=== PATIENT | female | born 1950 | race Hispanic/Latino ===

== ENCOUNTER 2017-10-31 11:57 | Observation (INO) | payer MEDICARE ==
[~2017-10-31] VITALS: Ht 149.9 cm; Wt 91.7 kg
[~2017-10-31 11:57] MED LIST: AMLODIPINE BESY10 MG PO; ATORVASTATIN CA20 MG PO; ATORVASTATIN CA40 MG PO; CHLORTHALIDONE25 MG; CYMBALTA60 MG; EFFEXOR XR 3737.5 MG PO; FUROSEMIDE40 MG PO; GLIPIZIDE5 MG PO; HALOPERIDOL1 MG PO; HYZAAR 100-251 EACH; JANUVIA100 MG PO; LASIX20 MG PO; LEVAQUIN500 MG PO; LEVOTHYROXINE100 MC1 IV; LEVOTHYROXINE50 MCG PO; LORAZEPAM0.5 MG PO; MAGNESIUM OXID400 MG PO; MECLIZINE HCL25 MG PO; METOPROLOL TAR100 MG; METOPROLOL TART25 MG PO; POTASSIUM CHLO20 ME1 PO; RISPERIDONE0.5 MG PO; ROPINIROLE HCL1 MG PO; ROPINIROLE HCL3 MG; TRAZODONE HCL100 MG PO; TRAZODONE HCL50 MG PO; ULTRAM 50MG50 MG PO
--- OUTSIDE RECORDS SUMMARY | 2017-10-31 12:01 | XMS REPORT ---
Author Author [facility] Address Unknown Phone Unavailable Care Team Providers Care Rehabilitation Services Aide Name Role Phone JEANNINE DELGADILLO Unavailable Unavailable Problems This patient has no known problems. Allergies, Adverse Reactions, Alerts This patient has no known allergies or adverse reactions. Medications This patient has no known medications. Results Test Description Test Time Test Comments Text Results Atomic Results Result Comments CHEST SINGLE (PORTABLE) [place] [address] Patient Name: JUNIOR TIM MR #: [id number] : 1950 Age/Sex: 66/F Req #: [id number] Adm Physician: JEANNINE DELGADILLO MD Ordered by: DEMETRIUS RAGSDALE MD Report #: [id number] Location: ICU Room/Bed: ICU [facility] ___ Procedure: [id number] DX/CHEST SINGLE (PORTABLE) Exam Date: 06/02/17 Exam Time: 1130 REPORT STATUS: Signed PROCEDURE: A single AP view of the chest. COMPARISON: Portable chest 05/02/2017. INDICATIONS: PLEURAL EFFUSION FINDINGS: Lines/tubes: None. Lungs: Bibasilar atelectasis. No parenchymal mass. Pleura: Small bilateral pleural effusions. No pneumothorax. Heart and mediastinum: The heart and the mediastinum are unremarkable. Bones: No acute bony abnormality. Degenerative changes of the thoracic spine. IMPRESSION: Small bilateral pleural effusions. Dictated by: Delmy Avitia M.D. on 06/02/2017 at 12:07 Electronically approved by: Delmy Avitia M.D. on 06/02/2017 at 12:07 Dictated By: DELMY AVITIA MD 06 Transcribed By: IRVIN on 06/02/171206 COPY TO: DEMETRIUS RAGSDALE MD ABDOMEN-1VIEW ([facility]) [place] [address] Patient Name: JUNIOR TIM MR #: [id number] : 1950 Age/Sex: 66/F Req #: [id number] Adm Physician: JEANNINE DELGADILLO MD Ordered by: JEANNINE DELGADILLO MD Report #: [id number] Location: ICU Room/Bed: ICU [facility] __ Procedure: [id number] DX/ABDOMEN-1VIEW ([facility]) Exam Date: Exam Time: 0500 REPORT STATUS: Signed EXAM: ABDOMEN-1VIEW ([facility]) DATE: 06/01/2017 5:11 AM Time stamp on exam: 5:27 AM INDICATION: NG tube placement. COMPARISON: None FINDINGS: LINES/TUBES: NG tube is visualized with tip overlying the region of the gastric body. BOWEL PATTERN: No evidence for obstruction. SOFT TISSUES: No abnormal calcifications. No mass effect. LUNG BASES: Small left pleural effusion present. BONES: Postsurgical changes from spinal fusion and laminectomy at L4-5 level. Degenerative changes are present. IMPRESSION: Nonobstructive bowel gas pattern. Signed by: Dr. Josafat Bowman M.D. on 06/01/2017 5:58 AM Dictated By: JOSAFAT RAMOS MD Transcribed By: PHIL on 06/01/1758 COPY TO: JEANNINE DELGADILLO MD CHEST SINGLE (PORTABLE) [place] [address] Patient Name: JUNIOR TIM MR #: [id number] : 1950 Age/Sex: 66/F Req #: [id number] Adm Physician: JEANNINE DELGADILLO MD Ordered by: DEMETRIUS RAGSDALE MD Report #: [id number] Location: ICU Room/Bed: ICU [facility] ___ Procedure: [id number] DX/CHEST SINGLE (PORTABLE) Exam Date: 06/01/17 Exam Time: 0500 REPORT STATUS: Signed EXAMINATION: CHEST SINGLE (PORTABLE) INDICATION: Endotracheal and NG tube placement COMPARISON: 05/31/2017 FINDINGS: TUBES and LINES: Endotracheal tube remains in good position with 2 cm above the macario. NG tube placement with tip beyond the film is limited in the distribution of the esophagus and stomach. LUNGS: Lungs are not well inflated. There are bibasilar atelectasis. There is mild prominence of the central pulmonary vasculature, consistent with pulmonary venous congestion. PLEURA: Bilateral pleural effusions left greater than right. HEART AND MEDIASTINUM: Cardiac size is moderately enlarged. BONES AND SOFT TISSUES: No acute osseous lesion. Soft tissues are unremarkable. UPPER ABDOMEN: No free air under the diaphragm. IMPRESSION: Tubes appear normal in position. Bilateral pleural effusions left greater than right. Underlying fluid overload is suspected. Signed by: Dr. Josafat Bowman M.D. on 06/01/2017 5:59 AM Dictated By: JOSAFAT RAMOS MD 8 Transcribed By: PHIL on 06/01/1759 COPY TO: DEMETRIUS RAGSDALE MD CHEST SINGLE (PORTABLE) [place] [address] Patient Name: JUNIOR TIM MR #: [id number] : 1950 Age/Sex: 66/F Req #: [id number] Adm Physician: JEANNINE DELGADILLO MD Ordered by: JEANNINE DELGADILLO MD Report #: [id number] Location: ICU Room/Bed: ICU [facility] __ Procedure: [id number] DX/CHEST SINGLE (PORTABLE) Exam Date : 05/31/17 Exam Time: 2250 REPORT STATUS: Signed EXAMINATION: CHEST SINGLE (PORTABLE) INDICATION: Possible line displacement. COMPARISON: 05/30/2017 and 08/20/2016 FINDINGS: TUBES and LINES: Endotracheal tube in good position 3.5 cm above the maacrio. LUNGS: Lungs are not well inflated. There are bibasilar atelectasis. There is mild prominence of the central pulmonary vasculature, consistent with pulmonary venous congestion. Interlobular septi thickening present. PLEURA: Small bilateral pleural effusions. HEART AND MEDIASTINUM: Cardiac size is mildly enlarged. There are atherosclerotic calcifications within the aorta. BONES AND SOFT TISSUES: No acute osseous lesion. Soft tissues are unremarkable. UPPER ABDOMEN: No free air under the diaphragm. IMPRESSION: Endotracheal tube in good position. Relatively stable to slightly worsening vascular congestion and fluid overload with small pleural effusions. Signed by: Dr. Josafat Bowman M.D. on 11:12 PM Dictated By: JOSAFAT RAMOS MD [id number] Transcribed By: PHIL on 05/31/172311 COPY TO: JEANNINE DELGADILLO MD CHEST SINGLE (PORTABLE) [place] [address] Patient Name: JUNIOR TIM MR #: [id number] : 1950 Age/Sex: 66/F Req #: [id number] Adm Physician: Ordered by: QUINTEN GOODWIN MD Report #: [id number] Location: ER Room/Bed: Procedure: [id number] DX/CHEST SINGLE (PORTABLE) Exam Date: 05/30/17 Exam Time: 1645 REPORT STATUS: Signed PROCEDURE: A single AP view of the chest. COMPARISON: Chest x-ray of 08/25/2016 INDICATIONS: SOB FINDINGS: Lines/tubes: None. Lungs: Lungs are well-inflated. New bilateral infrahilar airspace opacities. Pleura : There is no pleural effusion or pneumothorax. Heart and mediastinum: Mild cardiomegaly. . Bones: No acute bony abnormality. IMPRESSION: Bilateral infrahilar airspace opacities with mild cardiomegaly, likely pulmonary edema. Dictated by: Shama Shaikh M.D. on 05/30/2017 at 17:33 Electronically approved by: Shama Shaikh M.D. on 05/30/2017 at 17:33 Dictated By: SHAMA SHAIKH MD 32 Transcribed By: IRVIN on 05/30/171732 COPY TO: QUINTEN GOODWIN MD CHEST SINGLE (PORTABLE) [place] [address] Patient Name: JUNIOR TIM MR #: [id number] : 1950 Age/Sex: 66/F Req #: [id number] [facility] Physician: JEANNINE DELGADILLO MD Ordered by: QUINTEN GOODWIN MD Report #: [id number] Location: [facility] Room/Bed: [place] [address] Procedure: [id number] DX/CHEST SINGLE (PORTABLE) Exam Date: Exam Time: REPORT STATUS: Signed EXAM: XR CHEST 1 VIEW DATE: 05/30/2017 12:00 AM INDICATION: Intubation COMPARISON: None FINDINGS: Lines and Tubes: ET tube is present with tip just above the macario. Heart and Mediastinum: Moderate cardiomegaly, likely partially related to low lung volumes. Lungs and Pleura: Body habitus limits evaluation. Patchy opacities mid and lower lungs. Bones and Soft Tissues: No acute findings. IMPRESSION: 1. ET tube tip above macario. 2. Probable edema. Pneumonia not excluded. Signed by: Dr. Crystal Summers MD on 05/30/2017 7:15 PM Dictated By: CRYSTAL SUMMERS MD 14 Transcribed By: PHIL on 05/30/171914 COPY TO: QUINTEN GOODWIN MD
[2017-10-31] MEDS ORDERED: ALBUTEROL SULF 0.083% NEB SOLN 3 ML NEB NEB STA (12:43)
[2017-10-31] MEDS ORDERED: IPRATROPIUM BROMIDE 0.02% 2.5 ML NEB NEB ONE (12:45)
[2017-10-31 13:04] LABS: BASOPHILS % 0.5 % (0.0-1.0); BILIRUBIN,URINE NEGATIVE (NEGATIVE); EOSINOPHILS # (AUTO) 0.1 (0.0-0.4); EOSINOPHILS % 1.1 % (0.0-6.0); HEMATOCRIT 41.6 % (34.2-44.1); HEMOGLOBIN 13.3 g/dL (12.0-16.0); KETONES,URINE NEGATIVE (NEGATIVE); LEUKOCYTE ESTERASE ,URINE 1+ (NEGATIVE); LYMPHOCYTES # (AUTO) 1.9 (1.0-3.2); LYMPHOCYTES % 21.1 % (18.0-39.1); MEAN CORPUSCULAR HEMOGLOBIN 28.9 pg (28-32); MEAN CORPUSCULAR VOLUME 90.4 fL (81-99); MONOCYTES # (AUTO) 1.2 (0.2-0.8); MONOCYTES % 13.1 % (4.4-11.3); NEUTROPHILS # (AUTO) 5.6 (2.1-6.9); NEUTROPHILS % 63.7 % (38.7-80.0); NITRITE,URINE NEGATIVE (NEGATIVE); PLATELET COUNT 151 x10e3/uL (140-360); RED CELL DISTRIBUTION WIDTH 14.9 % (11.7-14.4); URINE UROBILINOGEN 0.2 mg/dL (0.2 - 1)
--- NOTE | 2017-10-31 13:04 | Diagnostic Imaging Report ---
PROCEDURE: Frontal and lateral views of the chest. COMPARISON: Portable chest 06/02/2017. INDICATIONS: CHEST PAIN, SHORTNESS OF BREATH FINDINGS: Lines/tubes: None. Lungs: No focal consolidation. Bibasilar atelectasis. Pleura: There is no pleural effusion or pneumothorax. Heart and mediastinum: Increase prominence is present in the right hilum. The heart and the mediastinum are normal. Atherosclerotic calcifications. Bones: No acute bony abnormality. Degenerative changes of the thoracic spine. IMPRESSION: Increased prominence of the right hilum may represent lymphadenopathy. A CT the chest with contrast may provide additional information for further characterization. Dictated by: Ryan Salazar M.D. on 10/31/2017 at 13:04 Electronically approved by: Ryan Salazar M.D. on 10/31/2017 at 13:04
[2017-10-31 13:05] LABS: CLARITY,URINE CLEAR (CLEAR); COLOR,URINE YELLOW (YELLOW); PROTEIN,URINE DIPSTICK 1+ (NEGATIVE)
[2017-10-31 13:11] LABS: INR 1.02; PARTIAL THROMBOPLASTIN TIME 28.1 seconds (23.8-35.5); PROTHROMBIN TIME 12.6 seconds (11.9-14.5)
[2017-10-31 13:18] LABS: ALANINE AMINOTRANSFERASE 24 IU/L (0-55); ALBUMIN 3.3 g/dL (3.5-5.0); ALBUMIN/GLOBULIN RATIO 1.2 (0.8-2.0); ALKALINE PHOSPHATASE 87 IU/L (40-150); ANION GAP 9.6 mmol/L (8-16); BLOOD UREA NITROGEN 22 mg/dL (7-26); BUN/CREATININE RATIO 34 (6-25); CALCIUM 8.8 mg/dL (8.4-10.2); CARBON DIOXIDE 31 mmol/L (22-29); CHLORIDE 96 mmol/L (98-107); CREATINE KINASE 165 IU/L (29-168); CREATININE, SERUM 0.64 mg/dL (0.57-1.11); EST GLOMERULAR FILTRATION RATE > 60 ML/MIN (60-); GLUCOSE 213 mg/dL (74-118); POTASSIUM 3.6 mmol/L (3.5-5.1); SODIUM 133 mmol/L (136-145)
[2017-10-31 13:19] LABS: BACTERIA,URINE RARE /HPF; EPITHELIAL CELLS,URINE FEW /LPF; MUCUS,URINE MODERATE (RARE); RBC,URINE 0-5 /HPF (0-5)
[2017-10-31] MEDS ORDERED: ALBUTEROL/IPRATROPIUM 3 ML NEB NEB ONE (13:45)
[2017-10-31] MEDS ORDERED: MAGNESIUM SULFATE 2GM/50ML 50 ML IV ONE (13:45)
[2017-10-31] MEDS ORDERED: DEXAMETHASONE SOD PHOS 10 MG/1 ML VIAL IV ONE (13:45)
[2017-10-31] MEDS ORDERED: IOPAMIDOL 370 MG/ML 200 ML INFUS..BTL INJ ONE ×2 (15:30→23:02)
[2017-10-31] MEDS ORDERED: SODIUM CHLORIDE 0.9% 50ML 50 ML ONE ×2 (15:30→23:01)
[2017-10-31] MEDS ORDERED: ONDANSETRON HCL INJ 2 MG/ML VIAL IV PRN (16:00)
[2017-10-31] MEDS ORDERED: SODIUM CHLORIDE FLUSH 10 ML SYR INJ PRN (16:00)
[2017-10-31] MEDS: DOXYCYCLINE HYCLATE TABLET 100 MG TAB PO SCH (16:39)
[2017-10-31] MEDS: METHYLPREDNISOLONE SOD SUCC 40 MG/ML VIAL IV SCH (16:40)
--- NOTE | 2017-10-31 17:42 | Diagnostic Imaging Report ---
PROCEDURE: CT scan of the chest WITH intravenous contrast, using standard protocol. TECHNIQUE: The chest was scanned utilizing a multidetector helical scanner from the lung apex through the level of the adrenal glands after the IV administration of 100 cc of Isovue 370. Coronal and sagittal multiplanar reformations were obtained. COMPARISON: [facility], CT, CT ABDOMEN/PELVIS W, 07/09/2016, 18:37. [facility], CT, CT ABDOMEN/PELVIS WO, 08/20/2016, 13:35. [facility], DX, CHEST 2 VIEWS, 10/31/2017, 12:36. INDICATIONS: cough, congestion FINDINGS: Lines/tubes: None. Lungs and Airways: Moderate wall thickening in the left lower lobe bronchi, with mild wall thickening in the central aspect of bilateral upper, right, middle and right lower lobe bronchi. No consolidation. Linear opacities in the right middle lobe, left lower lobe, lingula and right lower lobe likely represents subsegmental atelectasis. 5-6 mm polygonal shaped nodular density at the minor fissure (series 3, image 53 and sagittal image 43) likely representing a benign alex-fissural nodule or intrapulmonary lymph node. Ill-defined 5-6 mm groundglass nodule in the left upper lobe (series 3, image 29 and sagittal image 87). No other parenchymal nodules. No masses. Airways are clear, without endobronchial lesions.. Pleura: No effusion, or pneumothorax. Heart and mediastinum: Thyroid is unremarkable. Mild cardiomegaly. Aorta is non-aneurysmal. Pulmonary artery is enlarged, measuring 3.2 cm. No pericardial effusion. Atherosclerotic calcification of the coronary arteries and thoracic aorta. Lymph nodes: No mediastinal, hilar, or axillary adenopathy. Abdomen: Limited contrast-enhanced views of the upper abdomen show no abnormality within the visualized liver, spleen, pancreas. The adrenal glands are normal. Bones: No aggressive lytic lesion. Age-indeterminate compression deformities of the T8 and T6 vertebral bodies. Soft tissues are unremarkable. IMPRESSION: 1. Moderate wall thickening in the left lower lobe bronchi with mild wall thickening in the central aspect of bilateral upper, right, middle, and right lower lobe bronchi, which likely reflects bronchitis. No associated consolidation or focal opacity. 2. Right middle lobe, bilateral lower lobe and lingula subsegmental atelectasis. 3. An ill-defined 5-6 mm groundglass nodule in the left upper lobe likely secondary to resolving infection or inflammation. No routine followup is indicated if this is a low risk patient. 4. Age-indeterminate compression deformities of the T6 and T8 vertebral bodies. Brandon Sierra M.D. Dictated by: Brandon Sierra M.D. on 10/31/2017 at 17:42 Electronically approved by: Brandon Sierra M.D. on 10/31/2017 at 17:42
[2017-10-31] MEDS: ALBUTEROL/IPRATROPIUM 3 ML NEB NEB SCH ×2 (20:05→23:15)
[2017-11-01] VITALS (9 sets, daily range): BP systolic 109–150; BP diastolic 56–91
[2017-11-01] MEDS: METHYLPREDNISOLONE SOD SUCC 40 MG/ML VIAL IV SCH ×4 (00:14→21:07)
[2017-11-01] MEDS ORDERED: NON-FORMULARY MEDICATION (Meclizine Hcl 25 MG) PO SCH (05:30)
--- NOTE | 2017-11-01 06:06 | Diagnostic Imaging Report ---
EXAM: CHEST SINGLE (PORTABLE), AP 1 view INDICATION: Shortness of breath COMPARISON: PA and lateral view of the chest October 31, 2017 FINDINGS: LINES/TUBES: None LUNGS: Slight interval decrease in vascular congestion. PLEURA: No effusions or pneumothorax. HEART AND MEDIASTINUM: Normal size and contour. BONES AND SOFT TISSUES: No acute findings. IMPRESSION: Slight interval decreased vascular congestion. Signed by: Dr. Luh Wolfe M.D. on 11/01/2017 6:03 AM
[2017-11-01 06:28] LABS: HEMATOCRIT 41.6 % (34.2-44.1); HEMOGLOBIN 13.5 g/dL (12.0-16.0); LYMPHOCYTES # (AUTO) 0.7 (1.0-3.2); LYMPHOCYTES % 8.8 % (18.0-39.1); MEAN CORPUSCULAR HGB CONC 32.5 g/dL (31-35); MEAN CORPUSCULAR VOLUME 89.3 fL (81-99); MONOCYTES # (AUTO) 0.1 (0.2-0.8); MONOCYTES % 0.7 % (4.4-11.3); NEUTROPHILS # (AUTO) 6.7 (2.1-6.9); NEUTROPHILS % 90.1 % (38.7-80.0); PLATELET COUNT 131 x10e3/uL (140-360); RED BLOOD COUNT 4.66 x10e6/uL (3.6-5.1); RED CELL DISTRIBUTION WIDTH 14.5 % (11.7-14.4)
[2017-11-01] MEDS ORDERED: MECLIZINE HCL 12.5 MG TAB PO PRN (06:30)
[2017-11-01 06:50] LABS: ANION GAP 14.8 mmol/L (8-16); BLOOD UREA NITROGEN 14 mg/dL (7-26); BUN/CREATININE RATIO 20 (6-25); CALCIUM 9.1 mg/dL (8.4-10.2); CARBON DIOXIDE 29 mmol/L (22-29); CHLORIDE 95 mmol/L (98-107); EST GLOMERULAR FILTRATION RATE > 60 ML/MIN (60-); GLUCOSE 325 mg/dL (74-118); POTASSIUM 4.8 mmol/L (3.5-5.1); SODIUM 134 mmol/L (136-145)
--- NOTE | 2017-11-01 06:53 | History and Physical ---
PRIMARY CARE PHYSICIAN: Dr. Leigh CHIEF COMPLAINT: Shortness of breath and cough. HISTORY OF PRESENT ILLNESS: This is a 66-year-old woman with a history of severe COPD on 2 L nasal cannula oxygen at home and systolic congestive heart failure, who recently went to [place] for spring. While there and when she returned, she developed shortness of breath and cough. Now, her cough is worse. Therefore, the patient came to the hospital. Here she was found to have inflammatory changes in the lungs suggestive of acute exacerbation of COPD. She is admitted for further evaluation and management. She denies any chest pain. PAST MEDICAL HISTORY: Severe asthma/COPD on 2 L nasal cannula at home for the past 2 years, systolic congestive heart failure, pneumonia, diabetes mellitus, type 2, hypertension, acute respiratory failure with intubation, urinary tract infection, acute metabolic encephalopathy, hyponatremia, hypokalemia, physical deconditioning, hypothyroidism. PAST SURGICAL HISTORY: Cholecystectomy and back surgery. ALLERGIES: PER ELECTRONIC MEDICAL RECORD. FAMILY/SOCIAL HISTORY: Patient is . She has 4 children. No alcohol, illicits or cigarettes. Diabetes and hypertension in the family. MEDICATIONS: Per electronic medical record. REVIEW OF SYSTEMS: Denies any dizziness or chest pain. PHYSICAL EXAMINATION VITAL SIGNS: Reviewed. GENERAL: A tired-appearing woman resting in bed. HEENT: Anicteric. CARDIOVASCULAR: Normal S1 and S2. LUNGS: She has reduced breath sounds throughout. She has scattered wheezing. ABDOMEN: Soft, nontender and nondistended. EXTREMITIES: No edema or calf tenderness. NEUROLOGICAL: She is alert and oriented times 3. She moves all extremities. SKIN: Dry. PSYCHIATRIC: Normal affect. LABS: Reviewed. MEDICATIONS: Reviewed. ASSESSMENT AND PLAN: This is a 66-year-old woman with: 1. Acute exacerbation of chronic obstructive pulmonary disease: Will continue oxygen, nebs and steroids. Will add antitussive medication and antihistamine and Singulair as well. 2. Systolic congestive heart failure: This is chronic. There is some inflammation in the lungs, but does not appear to be an exacerbation of congestive heart failure. Will monitor closely. Will continue Lasix 40 mg p.o. daily. 3. Urinary tract infection: Continue antibiotics and follow up cultures. 4. Diabetes mellitus, type 2: Obtain hemoglobin A1c and lipid panel. 5. Hypothyroidism: Will continue Synthroid. 6. Anxiety/depression: Continue . 7. Hypertension: Continue calcium channel tanya. 8. Hyperlipidemia: Continue statin. 9. Prophylaxis: Use Lovenox and Pepcid. 10. Disposition: Monitor closely and follow up. Job#: [id number] [place]
[2017-11-01] MEDS: ALBUTEROL/IPRATROPIUM 3 ML NEB NEB SCH ×4 (07:00→23:30)
[2017-11-01 07:10] LABS: CHOL/HDL RATIO 3.6 (3.0-3.6)
[2017-11-01] MEDS: GLIPIZIDE 5 MG TAB PO SCH (08:04)
[2017-11-01] MEDS: FAMOTIDINE 20 MG TAB PO SCH ×2 (08:04→15:58)
[2017-11-01] MEDS: LEVOTHYROXINE SODIUM 50 MCG TAB PO SCH (08:04)
[2017-11-01] MEDS: VENLAFAXINE HCL 37.5MG XR CAP PO SCH (09:29)
[2017-11-01] MEDS: LORATADINE 10 MG TAB PO SCH (09:29)
[2017-11-01] MEDS: METOPROLOL TARTRATE 25 MG TAB PO SCH ×2 (09:30→17:14)
[2017-11-01] MEDS: BENZONATATE 100 MG CAP PO SCH ×3 (09:31→21:07)
[2017-11-01] MEDS: AMLODIPINE BESYLATE 10 MG TAB PO SCH (09:31)
[2017-11-01] MEDS: GUAIFENESIN 600MG/DEXTROMETHORPHAN 30MG TABSR PO SCH ×3 (09:36→21:07)
[2017-11-01] MEDS: DOXYCYCLINE HYCLATE TABLET 100 MG TAB PO SCH ×2 (09:37→17:14)
[2017-11-01] MEDS: FUROSEMIDE 20 MG TAB PO SCH (09:38)
[2017-11-01] MEDS ORDERED: DEXTROSE 50% SYRINGE 50 ML IV PRN (12:45)
[2017-11-01] MEDS: INSULIN LISPRO 100 UNIT/1 ML 3ML VIAL SQ SCH ×4 (12:53→21:09)
[2017-11-01] MEDS ORDERED: INSULIN LISPRO 100 UNIT/1 ML 3ML VIAL SQ SCH (14:15)
[2017-11-01] MEDS ORDERED: ENOXAPARIN SOD INJ 40 MG/0.4 ML SYR SC SCH (17:00)
[2017-11-01] MEDS ORDERED: TRAZODONE HCL 50 MG TAB PO SCH (21:00)
[2017-11-01] MEDS ORDERED: ROPINIROLE HCL 1 MG TAB PO SCH (21:00)
[2017-11-01] MEDS ORDERED: MONTELUKAST SODIUM 10 MG TAB PO SCH (21:00)
[2017-11-01] MEDS ORDERED: ATORVASTATIN 20 MG TAB PO SCH (21:00)
[2017-11-02] MEDS: ALBUTEROL/IPRATROPIUM 3 ML NEB NEB SCH ×2 (03:30→07:00)
[2017-11-02 05:00] VITALS: BP 122/72
[2017-11-02] MEDS: GUAIFENESIN 600MG/DEXTROMETHORPHAN 30MG TABSR PO SCH (06:06)
[2017-11-02] MEDS ORDERED: FAMOTIDINE20 MG PO (06:51)
[2017-11-02] MEDS ORDERED: SINGULAIR10 MG PO (06:51)
[2017-11-02] MEDS ORDERED: PREDNISONE20 MG PO (06:51)
[2017-11-02] MEDS ORDERED: MUCINEX DM ER1 EACH PO (06:51)
[2017-11-02] MEDS ORDERED: TESSALON PERLE100 MG PO (06:51)
[2017-11-02] MEDS ORDERED: LORATADINE10 MG PO (06:51)
[2017-11-02] MEDS ORDERED: DOXYCYCLINE HY100 MG PO (06:51)
[2017-11-02] MEDS ORDERED: ADVAIR 100-501 EACH INH (06:52)
--- NOTE | 2017-11-02 07:22 | Discharge Summary ---
PRINCIPAL DIAGNOSES 1. Acute exacerbation of chronic obstructive pulmonary disease. 2. Systolic congestive heart failure. 3. Urinary tract infection. 4. Diabetes mellitus, type 2. Hemoglobin A1c 8.1, LDL 145 and triglycerides 86. SECONDARY DIAGNOSIS: Diabetes mellitus, type 2. CHIEF COMPLAINT: Shortness of breath and cough. HISTORY OF PRESENT ILLNESS: A 66-year-old female with shortness of breath and cough. Refer to the H and P for further details. HOSPITAL COURSE: The patient was found to have acute exacerbation of COPD. She received IV steroids and antitussive medications. Reviewed loratadine, Singulair and steroids. Doing much better today. Less cough. Less shortness of breath. She does have at home, 2 L. She is currently appropriate for discharge. Follow up. DISCHARGE MEDICATIONS: Per electronic medical record. Include Advair and prednisone and antitussive medication, as well as loratadine and Singulair. FOLLOWUP: Primary care doctor in 1 week. CONDITION ON DISCHARGE: Stable and improving. DISCHARGE LOCATION: Home. HAWA BROCK MD Job#: [id number] [facility]
[2017-11-02 08:30] VITALS: BP 144/78
[2017-11-02] MEDS: GLIPIZIDE 5 MG TAB PO SCH (08:35)
[2017-11-02] MEDS: FAMOTIDINE 20 MG TAB PO SCH (08:36)
[2017-11-02] MEDS: METHYLPREDNISOLONE SOD SUCC 40 MG/ML VIAL IV SCH (08:36)
[2017-11-02] MEDS: INSULIN LISPRO 100 UNIT/1 ML 3ML VIAL SQ SCH (08:36)
[2017-11-02] MEDS: FUROSEMIDE 20 MG TAB PO SCH (08:37)
[2017-11-02] MEDS: VENLAFAXINE HCL 37.5MG XR CAP PO SCH (08:37)
[2017-11-02] MEDS: LORATADINE 10 MG TAB PO SCH (08:37)
[2017-11-02] MEDS: METOPROLOL TARTRATE 25 MG TAB PO SCH (08:37)
[2017-11-02] MEDS: AMLODIPINE BESYLATE 10 MG TAB PO SCH (08:38)
[2017-11-02] MEDS: BENZONATATE 100 MG CAP PO SCH (08:38)
[2017-11-02] MEDS: DOXYCYCLINE HYCLATE TABLET 100 MG TAB PO SCH (08:38)
[2017-11-02] MEDS: LEVOTHYROXINE SODIUM 50 MCG TAB PO SCH (08:52)
[2017-11-02] MEDS ORDERED: ATORVASTATIN 40 MG TAB PO SCH (21:00)
== END 2017-11-02 09:29 | disposition home or self-care (01) ==
LOC: ER 12:02 → ERHOLD 16:38 → IMCU 23:35
PROVIDERS: ADMIT Internal Medicine; ATTEND Internal Medicine
DX: J44.1 Chronic obstructive pulmonary disease with (acute) exacerbation (principal); N39.0 Urinary tract infection, site not specified; I50.22 Chronic systolic (congestive) heart failure; E03.9 Hypothyroidism, unspecified; E11.9 Type 2 diabetes mellitus without complications; E78.5 Hyperlipidemia, unspecified; F41.8 Other specified anxiety disorders
CPT/HCPCS: 36415 ×2; 71045; 71046; 71260; 80048; 80053; 80061; 81001; 82550; 82553; 82948; 83036; 83605; 83880; 84484; 85025 ×2; 85610; 85730; 87040; 93005; 94640 ×6; 94760; 96372; 97116; 97161; 99284; G0378 ×3; G8978; G8979; G8980; J1100; J1650; J2920 ×3; Q9967

== ENCOUNTER 2018-08-21 03:45 | Inpatient (IN) | payer MEDICARE ==
[~2018-08-21] VITALS: Ht 149.9 cm; Wt 85.3 kg
[2018-08-21] VITALS (30 sets, daily range): BP systolic 66–147; BP diastolic 40–80
[~2018-08-21 03:45] MED LIST changes: +ADVAIR 100-501 EACH INH; +DOXYCYCLINE HY100 MG PO; +FAMOTIDINE20 MG PO; +LORATADINE10 MG PO; +MUCINEX DM ER1 EACH PO; +PREDNISONE20 MG PO; +SINGULAIR10 MG PO; +TESSALON PERLE100 MG PO
[2018-08-21] MEDS ORDERED: SODIUM CHLORIDE 0.9% 1000ML 1,000 ML IV STA ×2 (05:22→15:00)
[2018-08-21] MEDS ORDERED: METHYLPREDNISOLONE SOD SUCC 125 MG/2ML VIAL IV ONE (05:30)
[2018-08-21] MEDS ORDERED: ALBUTEROL/IPRATROPIUM 3 ML NEB NEB ONE ×2 (05:30→08:00)
--- NOTE | 2018-08-21 05:39 | NUR ---
RT AT BEDSIDE FOR HHN TX AND ABG
[2018-08-21 05:58] LABS: ABG PH 7.26 (7.31-7.41)
[2018-08-21 05:59] LABS: ABG HCO3 30 mmol/L (23-28); ABG PCO2 67 mmHg (41-51); ABG PO2 74 mmHg (80-105)
--- NOTE | 2018-08-21 06:25 | Diagnostic Imaging Report ---
CHEST 2 VIEWS, Technique: CHEST 2 VIEWS Comparison: 11/01/2017, CT 10/31/2017 Clinical history: Shortness of breath DISCUSSION: Stable cardiomediastinal silhouette. Unchanged peribronchial thickening or central vascular congestion. Stable appearance of the lungs and pleural spaces. Several thoracic vertebral body compression deformities, unchanged. Lucency projecting over the right humerus. IMPRESSION: 1. Stable chest 2. Lucency projecting over the right humerus may be artifactual. Consider follow-up humerus radiographs. Signed by: Dr Latonia Gonzalez MD on 08/21/2018 6:21 AM
--- NOTE | 2018-08-21 06:43 | NUR ---
RT IN ROOM FOR BIPAP SETUP
[2018-08-21 06:45] LABS: BASOPHILS % 0.3 % (0.0-1.0); EOSINOPHILS # (AUTO) 0.1 (0.0-0.4); EOSINOPHILS % 0.8 % (0.0-6.0); HEMATOCRIT 46.3 % (34.2-44.1); HEMOGLOBIN 14.7 g/dL (12.0-16.0); LYMPHOCYTES # (AUTO) 0.9 (1.0-3.2); LYMPHOCYTES % 11.8 % (18.0-39.1); MEAN CORPUSCULAR HEMOGLOBIN 29.5 pg (28-32); MEAN CORPUSCULAR HGB CONC 31.7 g/dL (31-35); MONOCYTES # (AUTO) 0.6 (0.2-0.8); MONOCYTES % 8.3 % (4.4-11.3); NEUTROPHILS # (AUTO) 6.1 (2.1-6.9); NEUTROPHILS % 78.3 % (38.7-80.0); PLATELET COUNT 138 x10e3/uL (140-360); RED BLOOD COUNT 4.98 x10e6/uL (3.6-5.1); RED CELL DISTRIBUTION WIDTH 13.3 % (11.7-14.4)
[2018-08-21 06:51] LABS: INR 0.83; PROTHROMBIN TIME 12.2 seconds (11.9-14.5)
[2018-08-21 06:52] LABS: PARTIAL THROMBOPLASTIN TIME 28.7 seconds (23.8-35.5)
[2018-08-21 07:00] LABS: ANION GAP 13.7 mmol/L (8-16); BLOOD UREA NITROGEN 11 mg/dL (7-26); BUN/CREATININE RATIO 15 (6-25); CALCIUM 9.2 mg/dL (8.4-10.2); CARBON DIOXIDE 31 mmol/L (22-29); CHLORIDE 96 mmol/L (98-107); CREATINE KINASE 177 IU/L (29-168); CREATININE, SERUM 0.71 mg/dL (0.57-1.11); EST GLOMERULAR FILTRATION RATE > 60 ML/MIN (60-); GLUCOSE 193 mg/dL (74-118); POTASSIUM 3.7 mmol/L (3.5-5.1); SODIUM 137 mmol/L (136-145)
--- NOTE | 2018-08-21 07:01 | NUR ---
REPORT TO ABBY BLEVINS
[2018-08-21] MEDS ORDERED: MAGNESIUM SULFATE 2GM/50ML 50 ML IV ONE (08:00)
[2018-08-21 09:30] LABS: ABG HCO3 30 mmol/L (23-28); ABG PCO2 73 mmHg (41-51); ABG PH 7.21 (7.31-7.41); ABG PO2 87 mmHg (80-105)
[2018-08-21] MEDS ORDERED: SUCCINYLCHOLINE CHLORIDE 20 MG/ML 10ML VIAL IV STA (10:08)
[2018-08-21] MEDS ORDERED: ETOMIDATE 2 MG/ML 10 ML INJ IV STA (10:08)
[2018-08-21] MEDS ORDERED: MIDAZOLAM HCL 25 MG in SODIUM CHLORIDE 0.9% 50ML 45 ML IV PRN ×3 (10:15→17:45)
[2018-08-21] MEDS ORDERED: FENTANYL CITRATE INJ 2,000 MCG in SODIUM CHLORIDE 0.9% 250ML 210 ML IV PRN (10:15)
[2018-08-21] MEDS ORDERED: SODIUM CHLORIDE 0.9% 1000ML 1,000 ML ONE ×2 (10:26→10:42)
[2018-08-21] MEDS ORDERED: ASPIRIN 81 MG CHEW TAB PO ONE (10:30)
[2018-08-21] MEDS ORDERED: SODIUM CHLORIDE FLUSH 10 ML SYR INJ PRN (10:30)
--- NOTE | 2018-08-21 10:30 | NUR ---
MD AT BEDSIDE WILL INTUBATE AND START A CENTRAL LINE FOR THE PT. WILL ALSO INSERT NG TUBE AND HAVE NURSES INSERT A JACOBS CATHETER, DUE TO PROLONGED INCAPACITATION IN BED. INFORMED CONSENT SIGNED BY THE SON FOR CENTRAL LINE AND INTUBATION. 1040 RT X 2 AT BEDSIDE WITH MD AND RN FOR INTUBATION. PPE WORN BY STAFF. 1041 TIMEOUT FOR PROCEDURES TAKEN AND 1042 IV SEDATION BEGUN. 1045 7.5 ET TUBE INSERTED VIA VIDEO SCOPE WITH GOOD COLOR MCKEON ON CO2 MONITOR; TAPED AT 23 AT THE TEETH. 1045 PT SUDDENLY HAD BRADYCARDIA TO 34 FROM 110; ATROPINE ADMINISTERED WITH GOOD RESULT TO HR OF 120. 1048 # 16 NG SS INSERTED AND TAPED W0 ATTACHING TO ET TUBE. 1056 RT SUCTIONED THICK WHITE SECRETIONS FROM ET TUBE. MD AWARE. 1104 ONGOING SEDATION OF VERSED AND FENTANYL INFUSIONS STARTED; PT PREPPED FOR CENTRAL LINE INSERTION; MD IN HAT, STERILE GOWN AND GLOVES; STAFF IN GOWN, MASK HAT AND GLOVES. TRIPPLE LUMEN INSERTED IN RT NECK UNDER STERILE PREP, INSERTION AND DRESSING. ALL LINES CAPPED AND FLUSHED BY MD. 1215 FAMILY WITH PT AND PT STARTING TO WAKE; VERSED AND FENTANYL INCREASED MD AWARE AND ORDERED ROCUONIUM AND SOFT RESTRAINTS TO HANDS TO PROTECT THE PT AND THE ET TUBE. PT SETTLED AFTER ADMINISTRATION.
[2018-08-21] MEDS: ALBUTEROL/IPRATROPIUM 3 ML NEB NEB SCH ×4 (11:00→22:45)
--- NOTE | 2018-08-21 11:51 | Diagnostic Imaging Report ---
EXAMINATION: CHEST SINGLE (PORTABLE) INDICATION: ^COPD ^[id number] ^1120 COMPARISON: Chest radiograph 08/21/2018 5:[address] chest 10/31/2017. FINDINGS: AP view TUBES and LINES: Interval intubation with endotracheal tube overlying the mid trachea, 4.1 cm above the macario. New right IJ central venous catheter with tip overlying the mid SVC. Infradiaphragmatic NG/OG tube with tip overlying the mid gastric body. LUNGS: Lungs are well inflated. Improved bilateral central pulmonary vascular congestion. No new consolidations or aspiration. Subsegmental atelectasis in the right perihilar region is unchanged when compared to CT chest 10/31/2017. PLEURA: No pleural effusion or pneumothorax. HEART AND MEDIASTINUM: The cardiac silhouette appears enlarged but likely related to portable technique. BONES AND SOFT TISSUES: No acute osseous lesion. Soft tissues are unremarkable. UPPER ABDOMEN: No free air under the diaphragm. IMPRESSION: 1. Interval placement of endotracheal and NG/OG tubes and right IJ central venous catheter. No pneumothorax. 2. Improved bilateral central pulmonary vascular congestion. Signed by: Dr. Lindy Mar M.D. on 08/21/2018 11:47 AM
[2018-08-21] MEDS ORDERED: METHYLPREDNISOLONE SOD SUCC 40 MG/ML VIAL IV SCH (12:00)
[2018-08-21] MEDS ORDERED: ATROPINE SULFATE 0.1 MG/ML 10ML SYR IV ONE (12:15)
[2018-08-21] MEDS ORDERED: ROCURONIUM BROMIDE 10 MG/ML 5ML VIAL IV ONE (12:30)
[2018-08-21] MEDS ORDERED: ROCURONIUM BROMIDE 1 ML ONE (12:31)
[2018-08-21] MEDS ORDERED: VECURONIUM BROMIDE FOR INJ 20 MG VIAL IV STA (12:42)
[2018-08-21] MEDS ORDERED: ATROPINE SULFATE 1 MG/ML VIAL IV ONE (12:45)
[2018-08-21 12:49] LABS: ABG PH 7.19 (7.31-7.41)
[2018-08-21 12:50] LABS: ABG HCO3 31 mmol/L (23-28); ABG PCO2 81 mmHg (41-51); ABG PO2 107 mmHg (80-105)
[2018-08-21 13:11] LABS: ABG HCO3 27 mmol/L (23-28); ABG PCO2 49 mmHg (41-51); ABG PH 7.35 (7.31-7.41); ABG PO2 172 mmHg (80-105)
[2018-08-21] MEDS: MIDAZOLAM HCL 25 MG in SODIUM CHLORIDE 0.9% 50ML 45 ML IV PRN ×2 (13:12→15:31)
[2018-08-21] MEDS: FENTANYL CITRATE INJ 2,000 MCG in SODIUM CHLORIDE 0.9% 250ML 210 ML IV PRN (13:13)
--- NOTE | 2018-08-21 13:29 | NUR ---
ICU READY; TO ICU VIA HOSPITAL BED WITH RN AND RT X 2; VSS; PT RESTING NAD AT THIS TIME; ET TUBE, NG TUBE AND CENTRAL LINE ALL IN GOOD PLACEMENT PER RADIOLOGY; SON TO WR.
[2018-08-21 13:55] LABS: CREATINE KINASE 155 IU/L (29-168)
[2018-08-21] MEDS ORDERED: OXYBUTYNIN CHLOR5 MG PO (14:31)
[2018-08-21 15:41] LABS: CHOL/HDL RATIO 3.8 (3.0-3.6)
[2018-08-21] MEDS: LEVOFLOXACIN 750MG/D5W 150ML 150 ML IV SCH (15:57)
--- NOTE | 2018-08-21 16:28 | NUR ---
BED PATIENT WAS TRANSPORTED ON TO ICU DOES NOT HAVE A BED SCALE. UNABLE TO WEIGH PATIENT
[2018-08-21] MEDS: VANCOMYCIN 1GM/NS 250 ML 250 ML IV SCH (16:46)
[2018-08-21] MEDS: SALMETEROL/FLUTICASONE 100/50 INH SCH (17:00)
[2018-08-21] MEDS ORDERED: OXYBUTYNIN CHLORIDE 5 MG TAB PO PRN (17:00)
[2018-08-21] MEDS ORDERED: MIDAZOLAM HCL 25 MG in DEXTROSE 5% 50ML 45 ML IV PRN (17:15)
[2018-08-21] MEDS: FAMOTIDINE 20 MG/2 ML VIAL IV SCH (17:24)
[2018-08-21] MEDS: ROPINIROLE HCL 1 MG TAB PO SCH (17:25)
--- NOTE | 2018-08-21 17:30 | NUR ---
decreased versed to new order to for versed drip at 3 mg/hr or less. do not titrate more than 3 mg/hr
--- NOTE | 2018-08-21 18:06 | NUR ---
copy of medical power of corporate associate attorney/ advance directives printed and put in chart Addendum: 08/21/18 at 1807 by Viviane Oliver RN Amended: Links added.
--- NOTE | 2018-08-21 18:15 | NUR ---
started tube feed diet. glucerna 1.2 at 20 ml/hr
[2018-08-21] MEDS ORDERED: VECURONIUM BROMIDE FOR INJ 20 MG VIAL ONE (18:30)
[2018-08-21] MEDS ORDERED: MIDAZOLAM HCL 2 MG/2 ML VIAL ONE (18:30)
[2018-08-21] MEDS ORDERED: ETOMIDATE 2 MG/ML 10 ML INJ IV ONE (18:30)
[2018-08-21] MEDS ORDERED: SUCCINYLCHOLINE CHLORIDE 20 MG/ML 10ML VIAL ONE (18:30)
--- NOTE | 2018-08-21 18:34 | NUR ---
rapid flu swabs x 2 sent to lab
--- NOTE | 2018-08-21 19:00 | NUR ---
PRIMARY CARE PHYSICIAN: Dr. Leigh CHIEF COMPLAINT: Shortness of breath and cough. HISTORY OF PRESENT ILLNESS: This is a 66-year-old woman with a history of severe COPD on 2 L nasal cannula oxygen at home and systolic congestive heart failure, who developed acute resp failure after going to [place] spring, with resulting flare of COPD, now after returning from [place] again, developed worsening SOB, this time requiring intubation. Limited Hx per son at bedside. PAST MEDICAL HISTORY: Severe asthma/COPD on 2 L nasal cannula at home for the past 2 years, systolic congestive heart failure, pneumonia, diabetes mellitus, type 2, hypertension, acute respiratory failure with intubation, urinary tract infection, acute metabolic encephalopathy, hyponatremia, hypokalemia, physical deconditioning, hypothyroidism. PAST SURGICAL HISTORY: Cholecystectomy and back surgery. ALLERGIES: PER ELECTRONIC MEDICAL RECORD. FAMILY/SOCIAL HISTORY: Patient is . She has 4 children. No alcohol, illicits or cigarettes. Diabetes and hypertension in the family. MEDICATIONS: Per electronic medical record. REVIEW OF SYSTEMS: unobtainable PHYSICAL EXAMINATION VITAL SIGNS: Reviewed. GENERAL: intubated. HEENT: Anicteric. CARDIOVASCULAR: Normal S1 and S2. LUNGS: REDUCED BS THOUGHOUT; ABDOMEN: Soft, nontender and nondistended. EXTREMITIES: No edema or calf tenderness. NEUROLOGICAL: SEDATED; SKIN: Dry. PSYCHIATRIC: Normal affect. LABS: Reviewed. MEDICATIONS: Reviewed. ASSESSMENT AND PLAN: This is a 66-year-old woman with: 1. Acute exacerbation of chronic obstructive pulmonary disease: 2. Chronic Systolic congestive heart failure 3.Hypercapneic respiratory failure 4.Sepsis 5.DM2 6.Hypothyroidism 7. Anxiety/depression: 8.HLD PLAN 1.IV steorids/nebs/IV abx/cultures 2.Nebs/vent per pulm 3.Bolus fluids- hypotensive; 4. 9.Prop; heparin; pepcid 10: Dispo: cct>35mins. d/w son at bedside;
--- NOTE | 2018-08-21 20:16 | NUR ---
NOTIFIED BY LAB THAT PATIENT IF FLU A POSITIVE, DROPLET PRECAUTION ISOLATION INITIATED AND DR Abdullahi RAGSDALE NOTIFIED. NEW ORDERS RECEIVED TO START TAMIFLU
[2018-08-21] MEDS ORDERED: OSELTAMIVIR PHOSPHATE 75 MG CAP PO ONE (20:29)
[2018-08-21] MEDS: METHYLPREDNISOLONE SOD SUCC 40 MG/ML VIAL IV SCH (20:59)
[2018-08-21] MEDS: ATORVASTATIN 40 MG TAB PO SCH (20:59)
[2018-08-21] MEDS: HEPARIN SOD (PORCINE) 5,000 UNIT/ML VIAL SC SCH (20:59)
[2018-08-21] MEDS: MONTELUKAST SODIUM 10 MG TAB PO SCH (20:59)
[2018-08-21] MEDS ORDERED: GLIPIZIDE 5 MG TAB PO SCH (21:00)
[2018-08-21] MEDS: OSELTAMIVIR PHOSPHATE 75 MG CAP PO SCH (21:01)
--- NOTE | 2018-08-21 21:17 | Consultation ---
DATE OF CONSULTATION: PULMONARY/CRITICAL CARE CONSULTATION REFERRING PHYSICIAN: Dr. Sawyer Davis CHIEF COMPLAINT: Hfgqw-vt-avxfawc respiratory failure. HISTORY OF PRESENT ILLNESS: The patient is a 67-year-old woman with a history of severe COPD. She uses oxygen at home as well as on a regular basis. She also uses a nebulizer and a rescue inhaler as needed. She has chronic systolic congestive heart failure as well as diabetes and hypothyroidism. The patient came to the emergency department after several days of worsening dyspnea. She had a dry cough as well as chest heaviness. She did not complain of fever. She had no phlegm production. PAST SURGICAL HISTORY: 1. Status post back surgery. 2. Status post cholecystectomy. PAST MEDICAL HISTORY: 1. COPD. 2. Chronic systolic congestive heart failure. 3. Diabetes. 4. Hypertension. 5. Hypothyroidism. SOCIAL HISTORY: The patient is not an active smoker. She is not a drinker. ALLERGIES: THE PATIENT HAS NO KNOWN DRUG ALLERGIES. FAMILY HISTORY: There is a history of diabetes and hypertension in the family. REVIEW OF SYSTEMS: There were no reported fevers. She did have some headache. She had no neck pain. She did have some cough and some dyspnea. She had some chest heaviness. There was no nausea or vomiting. She did not have any abdominal pain. She had no leg edema. She did not have any focal neurological complaints. PHYSICAL EXAMINATION: VITAL SIGNS: The patient is afebrile. The blood pressure is 107/52 and the saturation is 100% on 45%. She is on a pressure-regulated volume control at a rate of 18 with a tidal volume of 400. HEENT: Shows no facial swelling or erythema. The nasal mucosa is normal. NECK: There is a right IJ line in place. The site looks clean. CARDIAC: Reveals a regular rate and rhythm with a normal S1 and S2. There are no murmurs or rubs. CHEST: Auscultation of lungs reveals clear breath sounds bilaterally. There is no wheezing. ABDOMEN: Soft and nontender. There is no rebound or guarding. EXTREMITIES: Shows no leg edema or calf tenderness. There is no cyanosis or clubbing. SKIN: Shows no rashes. NEUROLOGIC: Shows patient to be sedated. LABORATORY DATA: White blood cell count is 7.7 and the hemoglobin is 14.7. The platelet count is 138,000. The BUN to creatinine ratio is 11 to 0.71. The carbon dioxide is 31. Other electrolytes are within normal limits. The last ABG is 7.35, 49, 172, and 27. RADIOGRAPHIC DATA: Chest x-ray shows some cardiomegaly with no active disease. IMPRESSION: 1. Ktzby-ke-lipcleb respiratory failure. 2. Chronic obstructive pulmonary disease. 3. Chronic systolic congestive heart failure. 4. Diabetes. 5. Hypertension. 6. Hypothyroidism. PLAN: 1. Continue Solu-Medrol and bronchodilators. 2. Continue IV antibiotics. 3. Continue assist-control mode of ventilation for tonight and attempt spontaneous breathing trial tomorrow. 4. Begin enteral feedings. 5. DVT prophylaxis. Thank you. Job#: [id number]
[2018-08-21] MEDS ORDERED: MIDAZOLAM HCL 5 MG/ML VIAL ONE (23:14)
[2018-08-21] MEDS ORDERED: SODIUM CHLORIDE 0.9% 50ML 50 ML ONE (23:15)
[2018-08-22] VITALS (23 sets, daily range): BP systolic 107–156; BP diastolic 57–106
[2018-08-22] MEDS: ALBUTEROL/IPRATROPIUM 3 ML NEB NEB SCH ×3 (02:35→11:00)
[2018-08-22] MEDS: FENTANYL CITRATE INJ 2,000 MCG in SODIUM CHLORIDE 0.9% 250ML 210 ML IV PRN (04:21)
[2018-08-22] MEDS: SALMETEROL/FLUTICASONE 100/50 INH SCH ×2 (04:21→17:00)
[2018-08-22 04:48] LABS: BASOPHILS % 0.1 % (0.0-1.0); HEMATOCRIT 36.4 % (34.2-44.1); LYMPHOCYTES # (AUTO) 0.2 (1.0-3.2); LYMPHOCYTES % 2.5 % (18.0-39.1); MEAN CORPUSCULAR HEMOGLOBIN 29.3 pg (28-32); MONOCYTES # (AUTO) 0.4 (0.2-0.8); MONOCYTES % 3.9 % (4.4-11.3); NEUTROPHILS # (AUTO) 8.5 (2.1-6.9); NEUTROPHILS % 93.1 % (38.7-80.0); PLATELET COUNT 137 x10e3/uL (140-360); RED BLOOD COUNT 4.09 x10e6/uL (3.6-5.1); RED CELL DISTRIBUTION WIDTH 13.2 % (11.7-14.4)
[2018-08-22 05:07] LABS: ALANINE AMINOTRANSFERASE 12 IU/L (0-55); ALBUMIN/GLOBULIN RATIO 1.3 (0.8-2.0); ALKALINE PHOSPHATASE 71 IU/L (40-150); ANION GAP 12.4 mmol/L (8-16); BLOOD UREA NITROGEN 17 mg/dL (7-26); BUN/CREATININE RATIO 22 (6-25); CALCIUM 8.3 mg/dL (8.4-10.2); CARBON DIOXIDE 24 mmol/L (22-29); CHLORIDE 100 mmol/L (98-107); CREATININE, SERUM 0.76 mg/dL (0.57-1.11); EST GLOMERULAR FILTRATION RATE > 60 ML/MIN (60-); GLUCOSE 398 mg/dL (74-118); POTASSIUM 3.4 mmol/L (3.5-5.1); SODIUM 133 mmol/L (136-145)
[2018-08-22 05:54] LABS: CREATINE KINASE MB 0.9 ng/mL (0-5.0)
[2018-08-22] MEDS: LEVOTHYROXINE SODIUM 125 MCG TAB PO SCH (06:06)
[2018-08-22] MEDS: LEVOTHYROXINE SODIUM 50 MCG TAB PO SCH (06:07)
--- NOTE | 2018-08-22 06:16 | NUR ---
IM- Progress Note O/N; no events REVIEW OF SYSTEMS: unobtainable PHYSICAL EXAMINATION VITAL SIGNS: Reviewed. GENERAL: intubated. HEENT: Anicteric. CARDIOVASCULAR: Normal S1 and S2. LUNGS: REDUCED BS THOUGHOUT; ABDOMEN: Soft, nontender and nondistended. EXTREMITIES: No edema or calf tenderness. NEUROLOGICAL: SEDATED; SKIN: Dry. PSYCHIATRIC: Normal affect. LABS: Reviewed. MEDICATIONS: Reviewed. ASSESSMENT AND PLAN: This is a 66-year-old woman with: 1. Acute exacerbation of chronic obstructive pulmonary disease: 2. Chronic Systolic congestive heart failure 3.Hypercapneic respiratory failure 4.Sepsis 5.DM2 6.Hypothyroidism 7. Anxiety/depression: 8.HLD PLAN 1.IV steorids/nebs/IV abx/cultures 2.Nebs/vent per pulm 3.Bolus fluids- hypotensive; 4.Prop; heparin; pepcid 5: Dispo: cct>35mins. d/w son at bedside; 08/22 replace K and phos. f/u CXR; control glucose; Hba1c/LDL 6.8/148; atorvastatin 40. Positive Flu - tamiflu/abx. cct>35mins.
--- NOTE | 2018-08-22 06:26 | Diagnostic Imaging Report ---
CHEST SINGLE (PORTABLE), 08/22/2018 6:00 AM Technique: CHEST SINGLE (PORTABLE) Comparison: Previous day Clinical history: Acute respiratory failure Findings: See Impression Impression: 1. Lines/Tubes: Stable ET tube about 4 cm above the macario, right IJ central venous catheter projecting over the low SVC with tip poorly seen. 2. Stable cardiomediastinal silhouette. 3. Central vascular congestion. Mild bibasilar opacity may reflect atelectasis. No significant effusion. Signed by: Dr Latonia Gonzalez MD on 08/22/2018 6:23 AM
[2018-08-22] MEDS: INSULIN DETEMIR 100 UNIT/ML PEN SQ SCH ×3 (06:29→18:48)
[2018-08-22] MEDS ORDERED: POTASSIUM PHOSPHATE 20 MM in SODIUM CHLORIDE 0.9% 250ML 250 ML IV ONE (06:45)
[2018-08-22] MEDS ORDERED: DEXMEDETOMIDINE 200MCG/NS 50ML 50 ML IV PRN (07:30)
--- NOTE | 2018-08-22 08:20 | NUR ---
precedex drip started d/t increased anxiety. HR in 120-130s, kicking legs around. will continue to monitor
[2018-08-22] MEDS ORDERED: VENLAFAXINE HCL 37.5MG XR CAP PO SCH (09:00)
[2018-08-22] MEDS: METHYLPREDNISOLONE SOD SUCC 40 MG/ML VIAL IV SCH ×2 (10:07→22:27)
[2018-08-22] MEDS: VENLAFAXINE HCL 75 MG CAPCR PO SCH (10:07)
[2018-08-22] MEDS: OSELTAMIVIR PHOSPHATE 75 MG CAP PO SCH ×2 (10:07→22:27)
[2018-08-22] MEDS: FAMOTIDINE 20 MG/2 ML VIAL IV SCH ×2 (10:07→18:48)
[2018-08-22] MEDS: ROPINIROLE HCL 1 MG TAB PO SCH ×2 (10:07→17:00)
[2018-08-22] MEDS: HEPARIN SOD (PORCINE) 5,000 UNIT/ML VIAL SC SCH ×2 (10:08→22:28)
[2018-08-22] MEDS ORDERED: ALBUTEROL/IPRATROPIUM 3 ML NEB NEB PRN (12:00)
--- NOTE | 2018-08-22 12:38 | Progress Note ---
DATE: August 22, 2018 PULMONARY/CRITICAL CARE PROGRESS NOTE SUBJECTIVE: Influenza swab was positive yesterday evening. Patient was started on Tamiflu. This morning, the patient was placed on a spontaneous breathing trial. She tolerated a pressure support of 8 and CPAP of 3 well with a spontaneous respiratory rate of 18 to 21 and tidal volumes of 300 to 400 mL. She is awake and following commands off of sedation. OBJECTIVE VITALS: The patient is afebrile. The blood pressure is 118/58, and the respiratory rate is 14. Saturation is 100%. HEENT: No facial swelling or erythema. The patient has an oral endotracheal tube in place. LYMPHATIC: No submandibular, cervical or supraclavicular adenopathy. CARDIAC: Regular rate and rhythm with normal S1 and S2. LUNGS: Auscultation of the lungs reveals clear breath sounds bilaterally. There is no wheezing. ABDOMEN: Soft. Nontender. There is no rebound or guarding. EXTREMITIES: No leg edema or calf tenderness. There is no cyanosis or clubbing. SKIN: Examination shows no rashes. NEUROLOGIC: Exam shows no focal abnormalities. LABORATORY DATA: Blood gas 7.35, 49, 172 and 27. Potassium is 3.4, and sodium is 133. The LWY-nm-ouctrkejqt ratio is normal. The blood sugar is 317. White blood cell count is 9.16, and hemoglobin is 12. The platelet count is 137. Chest x-ray shows no active disease. IMPRESSION 1. Ykseg-oj-pubepjq respiratory failure. 2. Chronic obstructive pulmonary disease. 3. Influenza. 4. Chronic systolic congestive heart failure. 5. Diabetes out of control. 6. Hypertension. 7. Hypothyroidism. PLAN 1. Proceed with extubation to a nasal cannula. 2. Continue Tamiflu and taper antibiotics as tolerated. 3. Wean Solu-Medrol as tolerated. 4. Continue bronchodilators. 5. DVT prophylaxis. 6. Case discussed with family, the patient, nursing and respiratory. Greater than 35 minutes in direct critical care time during 3 separate visits, at 9:30 a.m., 12 00 noon, and 16 30 pm. Job#: [id number] ISHMAEL
[2018-08-22 13:01] LABS: ABG HCO3 23 mmol/L (23-28); ABG PCO2 37 mmHg (41-51); ABG PO2 161 mmHg (80-105)
[2018-08-22 14:19] LABS: MAGNESIUM 2.4 MG/DL (1.3-2.1); PHOSPHORUS 3.4 MG/DL (2.3-4.7); POTASSIUM 4.3 mmol/L (3.5-5.1)
[2018-08-22 14:40] LABS: ABG HCO3 25 mmol/L (23-28); ABG PCO2 55 mmHg (41-51); ABG PH 7.26 (7.31-7.41); ABG PO2 55 mmHg (80-105)
--- NOTE | 2018-08-22 15:21 | NUR ---
WOUND CARE CONSULTATION - NEW EVALUATION Patient is a 67 year-old Indonesian speaking female admitted through the ER from home with acute respiratory failure and hypoxia. Patient tested positive for FLU ( A+). Wound care consulted for concerns with rash to right breast fold, left abdominal pannus and perirectal areas. Head to toe assessment confirmed findings and patient presents with yeast to areas in question. Patient verbalizes on a recent trip to [place] she did not give herself appropriate hygiene due to cold weather and avoided baths. No pressure ulcers noted. Patient has history of restless leg syndrome. Patient trialed use of heel protectors but kicks them off. LABS: WBC9.16 HGB12 HCT63.4 NEUT%93.1 GLU: 398 HbA1C6.8 ALB3.0 RECOMMENDATION: 1. Right Breast Fold, Abdominal Pannus, and Mid Gluteal Folds: - Wash affected areas with mild soap and water twice a day - Apply Nystatin Cream twice a day and PRN Soiling. 2. Continue Alternating Air Mattress Use. 3. Restless Leg Syndrome - Shear Friction to Heels - Allevyn Heel Foam and Secure with Socks Every Other Day and PRN. 4. Continue to assist patient to Turn and Reposition q2h. Addendum: 08/22/18 at 1535 by Pablo Rick RN Amended: Links added.
[2018-08-22] MEDS ORDERED: FUROSEMIDE INJ 10 MG/ML 2 ML VIAL ONE (15:51)
[2018-08-22] MEDS ORDERED: FUROSEMIDE INJ 10 MG/ML 2 ML VIAL IV ONE (16:00)
[2018-08-22] MEDS ORDERED: LEVALBUTEROL HCL SOLN NEBU 0.63 MG/3 ML NEB INH PRN ×2 (16:00→16:15)
[2018-08-22] MEDS: VANCOMYCIN 1GM/NS 250 ML 250 ML IV SCH (16:23)
[2018-08-22] MEDS: LEVOFLOXACIN 750MG/D5W 150ML 150 ML IV SCH (16:23)
[2018-08-22 16:43] LABS: ABG HCO3 28 mmol/L (23-28); ABG PCO2 58 mmHg (41-51); ABG PH 7.29 (7.31-7.41); ABG PO2 137 mmHg (80-105)
[2018-08-22] MEDS ORDERED: ENOXAPARIN SOD INJ 40 MG/0.4 ML SYR SC SCH (17:00)
[2018-08-22] MEDS: LEVALBUTEROL HCL SOLN NEBU 0.63 MG/3 ML NEB INH SCH ×2 (19:00→23:30)
--- NOTE | 2018-08-22 19:00 | NUR ---
Report received. Assumed care. Assessment done. See intrventions. On Bipap with good O2 sats.
[2018-08-22] MEDS ORDERED: OSELTAMIVIR PHOSPHATE 75 MG CAP PO SCH (20:15)
[2018-08-22] MEDS: NYSTATIN 100,000 UNITS/GM CRM 30GM TUBE TOP SCH (21:00)
[2018-08-22] MEDS ORDERED: ATROPINE SULFATE 0.1 MG/ML 10ML SYR ONE (21:44)
[2018-08-22] MEDS ORDERED: SODIUM CHLORIDE FLUSH 10 ML SYR ONE (21:44)
[2018-08-22] MEDS: ATORVASTATIN 40 MG TAB PO SCH (22:32)
[2018-08-22] MEDS: MONTELUKAST SODIUM 10 MG TAB PO SCH (22:32)
[2018-08-23] VITALS (23 sets, daily range): BP systolic 122–168; BP diastolic 70–110
[2018-08-23] MEDS: LEVALBUTEROL HCL SOLN NEBU 0.63 MG/3 ML NEB INH SCH ×6 (03:00→23:30)
[2018-08-23 04:50] LABS: BASOPHILS % 0.2 % (0.0-1.0); HEMATOCRIT 41.1 % (34.2-44.1); HEMOGLOBIN 13.5 g/dL (12.0-16.0); LYMPHOCYTES # (AUTO) 0.6 (1.0-3.2); LYMPHOCYTES % 4.5 % (18.0-39.1); MEAN CORPUSCULAR HEMOGLOBIN 29.9 pg (28-32); MEAN CORPUSCULAR HGB CONC 32.8 g/dL (31-35); MEAN CORPUSCULAR VOLUME 91.1 fL (81-99); MONOCYTES # (AUTO) 0.3 (0.2-0.8); MONOCYTES % 2.2 % (4.4-11.3); NEUTROPHILS # (AUTO) 11.5 (2.1-6.9); NEUTROPHILS % 92.7 % (38.7-80.0); PLATELET COUNT 160 x10e3/uL (140-360); RED BLOOD COUNT 4.51 x10e6/uL (3.6-5.1); RED CELL DISTRIBUTION WIDTH 13.6 % (11.7-14.4)
[2018-08-23] MEDS: SALMETEROL/FLUTICASONE 100/50 INH SCH ×2 (05:00→19:30)
[2018-08-23 05:20] LABS: ALANINE AMINOTRANSFERASE 14 IU/L (0-55); ALBUMIN 3.2 g/dL (3.5-5.0); ALBUMIN/GLOBULIN RATIO 1.1 (0.8-2.0); ALKALINE PHOSPHATASE 76 IU/L (40-150); ANION GAP 13.1 mmol/L (8-16); BLOOD UREA NITROGEN 15 mg/dL (7-26); BUN/CREATININE RATIO 23 (6-25); CALCIUM 8.9 mg/dL (8.4-10.2); CARBON DIOXIDE 29 mmol/L (22-29); CHLORIDE 98 mmol/L (98-107); CREATININE, SERUM 0.66 mg/dL (0.57-1.11); EST GLOMERULAR FILTRATION RATE > 60 ML/MIN (60-); GLUCOSE 218 mg/dL (74-118); POTASSIUM 4.1 mmol/L (3.5-5.1); SODIUM 136 mmol/L (136-145)
--- NOTE | 2018-08-23 05:37 | Diagnostic Imaging Report ---
CHEST SINGLE (PORTABLE), 08/23/2018 6:30 AM Technique: CHEST SINGLE (PORTABLE) Comparison: Previous day Clinical history: COPD, influenza Findings: See Impression Impression: 1. Lines/Tubes: Removal of ET tube. Stable right IJ central venous catheter over the low SVC. 2. Stable cardiac silhouette. 3. Mild bibasilar vascular crowding/atelectasis. No significant effusion. Signed by: Dr Latonia Gonzalez MD on 08/23/2018 5:34 AM
[2018-08-23] MEDS: LEVOTHYROXINE SODIUM 50 MCG TAB PO SCH (05:50)
[2018-08-23] MEDS: LEVOTHYROXINE SODIUM 125 MCG TAB PO SCH (05:50)
[2018-08-23] MEDS ORDERED: RISPERIDONE 0.5 MG TAB PO PRN (08:00)
[2018-08-23 08:05] LABS: ABG HCO3 31 mmol/L (23-28); ABG PCO2 51 mmHg (41-51); ABG PH 7.38 (7.31-7.41); ABG PO2 58 mmHg (80-105)
[2018-08-23] MEDS: OSELTAMIVIR PHOSPHATE 75 MG CAP PO SCH ×2 (08:30→21:24)
[2018-08-23] MEDS: FAMOTIDINE 20 MG/2 ML VIAL IV SCH ×2 (08:30→16:34)
[2018-08-23] MEDS: ROPINIROLE HCL 1 MG TAB PO SCH ×2 (08:30→16:34)
[2018-08-23] MEDS: VENLAFAXINE HCL 75 MG CAPCR PO SCH (08:30)
[2018-08-23] MEDS: HEPARIN SOD (PORCINE) 5,000 UNIT/ML VIAL SC SCH ×2 (08:31→21:26)
[2018-08-23] MEDS: INSULIN DETEMIR 100 UNIT/ML PEN SQ SCH ×2 (08:31→16:55)
[2018-08-23] MEDS: ALPRAZOLAM 0.25 MG TAB PO PRN (08:33)
[2018-08-23] MEDS: NYSTATIN 100,000 UNITS/GM CRM 30GM TUBE TOP SCH ×2 (08:43→16:34)
[2018-08-23] MEDS: METHYLPREDNISOLONE SOD SUCC 40 MG/ML VIAL IV SCH ×2 (08:43→21:24)
--- NOTE | 2018-08-23 16:30 | NUR ---
pt refused bed bath that was offered. pt stated "I want my bath tonight, not now" will pass to shift supervisor.
[2018-08-23] MEDS: LEVOFLOXACIN 750MG/D5W 150ML 150 ML IV SCH (16:34)
--- NOTE | 2018-08-23 19:00 | NUR ---
Report received. Assumed care. Assessment done. See interventions.
--- NOTE | 2018-08-23 19:46 | NUR ---
IM- Progress Note O/N; no events REVIEW OF SYSTEMS: unobtainable PHYSICAL EXAMINATION VITAL SIGNS: Reviewed. GENERAL: intubated. HEENT: Anicteric. CARDIOVASCULAR: Normal S1 and S2. LUNGS: REDUCED BS THOUGHOUT; ABDOMEN: Soft, nontender and nondistended. EXTREMITIES: No edema or calf tenderness. NEUROLOGICAL: SEDATED; SKIN: Dry. PSYCHIATRIC: Normal affect. LABS: Reviewed. MEDICATIONS: Reviewed. ASSESSMENT AND PLAN: This is a 66-year-old woman with: 1. Acute exacerbation of chronic obstructive pulmonary disease: 2. Chronic Systolic congestive heart failure 3.Hypercapneic respiratory failure 4.Sepsis 5.DM2 6.Hypothyroidism 7. Anxiety/depression: 8.HLD PLAN 1.IV steorids/nebs/IV abx/cultures 2.Nebs/vent per pulm 3.Bolus fluids- hypotensive; 4.Prop; heparin; pepcid 5: Dispo: cct>35mins. d/w son at bedside; 08/22 replace K and phos. f/u CXR; control glucose; Hba1c/LDL 6.8/148; atorvastatin 40. Positive Flu - tamiflu/abx. cct>35mins. 08/23 control glucose; extubated. doing better; cont care. Sawyer Davis MD, PhD.
[2018-08-23] MEDS: MONTELUKAST SODIUM 10 MG TAB PO SCH (21:24)
[2018-08-23] MEDS: ATORVASTATIN 40 MG TAB PO SCH (21:24)
--- NOTE | 2018-08-23 23:03 | NUR ---
Complete bed bath given. Hair shampooed. Bed linens changed.
[2018-08-24] VITALS (18 sets, daily range): BP systolic 134–179; BP diastolic 60–110
--- NOTE | 2018-08-24 | NUR ---
Placed on Bipap for the night.
[2018-08-24] MEDS: ALPRAZOLAM 0.25 MG TAB PO PRN (01:00)
--- NOTE | 2018-08-24 01:00 | NUR ---
Medicated for anxiety per request.
[2018-08-24] MEDS: LEVALBUTEROL HCL SOLN NEBU 0.63 MG/3 ML NEB INH SCH ×3 (03:00→11:18)
[2018-08-24 04:49] LABS: BASOPHILS % 0.1 % (0.0-1.0); HEMATOCRIT 40.4 % (34.2-44.1); LYMPHOCYTES # (AUTO) 0.5 (1.0-3.2); LYMPHOCYTES % 6.6 % (18.0-39.1); MEAN CORPUSCULAR HEMOGLOBIN 29.7 pg (28-32); MEAN CORPUSCULAR HGB CONC 32.2 g/dL (31-35); MEAN CORPUSCULAR VOLUME 92.2 fL (81-99); MONOCYTES # (AUTO) 0.3 (0.2-0.8); MONOCYTES % 4.4 % (4.4-11.3); NEUTROPHILS # (AUTO) 6.8 (2.1-6.9); NEUTROPHILS % 88.3 % (38.7-80.0); PLATELET COUNT 159 x10e3/uL (140-360); RED BLOOD COUNT 4.38 x10e6/uL (3.6-5.1); RED CELL DISTRIBUTION WIDTH 13.3 % (11.7-14.4)
[2018-08-24 05:11] LABS: ALANINE AMINOTRANSFERASE 14 IU/L (0-55); ALBUMIN/GLOBULIN RATIO 1.2 (0.8-2.0); ALKALINE PHOSPHATASE 67 IU/L (40-150); ANION GAP 13.2 mmol/L (8-16); BLOOD UREA NITROGEN 17 mg/dL (7-26); BUN/CREATININE RATIO 25 (6-25); CALCIUM 8.8 mg/dL (8.4-10.2); CARBON DIOXIDE 30 mmol/L (22-29); CHLORIDE 97 mmol/L (98-107); CREATININE, SERUM 0.68 mg/dL (0.57-1.11); EST GLOMERULAR FILTRATION RATE > 60 ML/MIN (60-); GLUCOSE 296 mg/dL (74-118); POTASSIUM 4.2 mmol/L (3.5-5.1); SODIUM 136 mmol/L (136-145)
[2018-08-24] MEDS: LEVOTHYROXINE SODIUM 125 MCG TAB PO SCH (05:58)
[2018-08-24] MEDS: LEVOTHYROXINE SODIUM 50 MCG TAB PO SCH (05:58)
--- NOTE | 2018-08-24 06:13 | Diagnostic Imaging Report ---
CHEST SINGLE (PORTABLE), 08/24/2018 6:30 AM Technique: CHEST SINGLE (PORTABLE) Comparison: Previous day Clinical history: COPD, influenza Findings: See Impression Impression: 1. Lines/Tubes: Stable right IJ central catheter 2. Stable cardiac silhouette. 3. Mild left atelectasis and small left effusion or pleural thickening. Signed by: Dr Latonia Gonzalez MD on 08/24/2018 6:10 AM
--- NOTE | 2018-08-24 06:40 | NUR ---
IM- Progress Note O/N; no events REVIEW OF SYSTEMS: unobtainable PHYSICAL EXAMINATION VITAL SIGNS: Reviewed. GENERAL: intubated. HEENT: Anicteric. CARDIOVASCULAR: Normal S1 and S2. LUNGS: REDUCED BS THOUGHOUT; ABDOMEN: Soft, nontender and nondistended. EXTREMITIES: No edema or calf tenderness. NEUROLOGICAL: SEDATED; SKIN: Dry. PSYCHIATRIC: Normal affect. LABS: Reviewed. MEDICATIONS: Reviewed. ASSESSMENT AND PLAN: This is a 66-year-old woman with: 1. Acute exacerbation of chronic obstructive pulmonary disease: 2. Chronic Systolic congestive heart failure 3.Hypercapneic respiratory failure 4.Sepsis 5.DM2 6.Hypothyroidism 7. Anxiety/depression: 8.HLD PLAN 1.IV steorids/nebs/IV abx/cultures 2.Nebs/vent per pulm 3.Bolus fluids- hypotensive; 4.Prop; heparin; pepcid 5: Dispo: cct>35mins. d/w son at bedside; 08/22 replace K and phos. f/u CXR; control glucose; Hba1c/LDL 6.8/148; atorvastatin 40. Positive Flu - tamiflu/abx. cct>35mins. 08/23 control glucose; extubated. doing better; cont care. 08/24 doing well; control glucose; transfer to [facility]. PT consult. Sawyer Davis MD, PhD.
[2018-08-24] MEDS: SALMETEROL/FLUTICASONE 100/50 INH SCH ×2 (07:20→19:45)
--- NOTE | 2018-08-24 07:52 | NUR ---
CASE MANAGEMENT INITIAL ASSESSMENT Decator Operator to bedside to discuss plan of care with patient/family. CM/SW role and care transitions discussed. Anticipated discharge plan discussed along with duration of care. CM/SW discussed patients right to make decisions in care. CM/SW work hours given. Patient lives: WITH DAUGHTER BONI BISWAS Admit/Transfer: ER POA/Emergency contact: DTR BONI BISWAS [phone] Current/Previous Home Health: NONE PCP/Follow-up Care: DR CINDI NIETO Current/Previous DME: [facility] Other Services: NONE Employment Status: RETIRED Areas of Concerns: NONE Referral Needs: NONE Education Needs: TO BE DETERMINED IMM/LAKE given and signed (if applicable): IMM ON ADMIT Goal for discharge:DISCHARGE BACK HOME WITH BONI VIDAL CM/SW left business card at the bedside with contact information. Name and number was also written on the patients whiteboard. Patient verbalized understanding of discussion. CM will follow-up with ongoing discharge and transition of care needs.
[2018-08-24] MEDS: ROPINIROLE HCL 1 MG TAB PO SCH ×2 (08:27→16:52)
[2018-08-24] MEDS: VENLAFAXINE HCL 75 MG CAPCR PO SCH (08:27)
[2018-08-24] MEDS: FAMOTIDINE 20 MG/2 ML VIAL IV SCH ×2 (08:27→16:52)
[2018-08-24] MEDS: OSELTAMIVIR PHOSPHATE 75 MG CAP PO SCH ×2 (08:27→21:38)
[2018-08-24] MEDS: METHYLPREDNISOLONE SOD SUCC 40 MG/ML VIAL IV SCH ×2 (08:27→21:38)
[2018-08-24] MEDS: NYSTATIN 100,000 UNITS/GM CRM 30GM TUBE TOP SCH ×2 (08:28→17:00)
[2018-08-24] MEDS: INSULIN DETEMIR 100 UNIT/ML PEN SQ SCH ×2 (08:59→17:00)
[2018-08-24] MEDS: HEPARIN SOD (PORCINE) 5,000 UNIT/ML VIAL SC SCH ×2 (08:59→21:38)
--- NOTE | 2018-08-24 14:03 | NUR ---
RCD PT FROM ICU BY BED PT IS ALERT AND ORIENTED GETTING O2 3L BY NC VITALS CHECKED JACOBS DRAINING BY GRAVITY PT RESTING ON BED FAMILY AT BED SIDE BED LOW AND LOCKED CALL LIGHT IN REACH
[2018-08-24] MEDS: LEVOFLOXACIN 750MG/D5W 150ML 150 ML IV SCH (15:30)
--- NOTE | 2018-08-24 18:47 | NUR ---
PT RESTING ON BED BED SIDE REPORT GIVEN TO INCOMING NURSE
[2018-08-24] MEDS: ATORVASTATIN 40 MG TAB PO SCH (21:38)
[2018-08-24] MEDS: MONTELUKAST SODIUM 10 MG TAB PO SCH (21:38)
[2018-08-24] MEDS: ALBUTEROL SULFATE HFA 8GM INHALATION AEROSOL INH PRN (21:50)
[2018-08-25] VITALS (9 sets, daily range): BP systolic 139–175; BP diastolic 73–90
[2018-08-25] MEDS: LEVOTHYROXINE SODIUM 50 MCG TAB PO SCH (06:04)
[2018-08-25] MEDS: LEVOTHYROXINE SODIUM 125 MCG TAB PO SCH (06:04)
--- NOTE | 2018-08-25 07:05 | NUR ---
RCD PT AT BED PT IS ALERT AND ORIENTED PT RESTING ON BED NO SIGNS OF ANY DISTRESS NOTED IV PATENT JACOBS DRAINING BY GRAVITY FAMILY AT BED SIDE BED LOW AND LOCKED CALL LIGHT IN REACH
--- NOTE | 2018-08-25 07:17 | NUR ---
REPORT GIVEN TO ONCOMING NURSE,PT RESTING IN BED WITH NO S/S OF DISTRESS.
[2018-08-25] MEDS: ALBUTEROL SULFATE HFA 8GM INHALATION AEROSOL INH PRN ×4 (07:26→23:50)
[2018-08-25] MEDS: SALMETEROL/FLUTICASONE 100/50 INH SCH ×2 (07:26→16:32)
[2018-08-25] MEDS: FAMOTIDINE 20 MG/2 ML VIAL IV SCH ×2 (08:57→16:32)
[2018-08-25] MEDS: METHYLPREDNISOLONE SOD SUCC 40 MG/ML VIAL IV SCH (08:57)
[2018-08-25] MEDS: VENLAFAXINE HCL 75 MG CAPCR PO SCH (08:57)
[2018-08-25] MEDS: OSELTAMIVIR PHOSPHATE 75 MG CAP PO SCH ×2 (08:57→20:57)
[2018-08-25] MEDS: ROPINIROLE HCL 1 MG TAB PO SCH ×2 (08:57→16:32)
[2018-08-25] MEDS: NYSTATIN 100,000 UNITS/GM CRM 30GM TUBE TOP SCH ×2 (08:58→16:32)
[2018-08-25] MEDS: HEPARIN SOD (PORCINE) 5,000 UNIT/ML VIAL SC SCH ×2 (09:00→20:58)
[2018-08-25] MEDS: INSULIN DETEMIR 100 UNIT/ML PEN SQ SCH (09:00)
--- NOTE | 2018-08-25 11:26 | NUR ---
CENTRAL LINE DRESSING CHANGED
--- NOTE | 2018-08-25 12:29 | NUR ---
IM- Progress Note O/N; no events REVIEW OF SYSTEMS: unobtainable PHYSICAL EXAMINATION VITAL SIGNS: Reviewed. GENERAL: intubated. HEENT: Anicteric. CARDIOVASCULAR: Normal S1 and S2. LUNGS: REDUCED BS THOUGHOUT; ABDOMEN: Soft, nontender and nondistended. EXTREMITIES: No edema or calf tenderness. NEUROLOGICAL: SEDATED; SKIN: Dry. PSYCHIATRIC: Normal affect. LABS: Reviewed. MEDICATIONS: Reviewed. ASSESSMENT AND PLAN: This is a 66-year-old woman with: 1. Acute exacerbation of chronic obstructive pulmonary disease: 2. Chronic Systolic congestive heart failure 3.Hypercapneic respiratory failure 4.Sepsis 5.DM2 6.Hypothyroidism 7. Anxiety/depression: 8.HLD PLAN 1.IV steorids/nebs/IV abx/cultures 2.Nebs/vent per pulm 3.Bolus fluids- hypotensive; 4.Prop; heparin; pepcid 5: Dispo: cct>35mins. d/w son at bedside; 08/22 replace K and phos. f/u CXR; control glucose; Hba1c/LDL 6.8/148; atorvastatin 40. Positive Flu - tamiflu/abx. cct>35mins. 08/23 control glucose; extubated. doing better; cont care. 08/24 doing well; control glucose; transfer to [facility]. PT consult. 08/25 control glucose. doing better; ambulating Sawyer Davis MD, PhD.
[2018-08-25] MEDS: INSULIN LISPRO 100 UNIT/1 ML 3ML VIAL SQ SCH ×2 (12:45→16:30)
[2018-08-25] MEDS: LEVOFLOXACIN 750MG/D5W 150ML 150 ML IV SCH (15:30)
[2018-08-25] MEDS ORDERED: ACETAMINOPHEN 325 MG TAB PO PRN (16:00)
[2018-08-25] MEDS ORDERED: INSULIN DETEMIR 100 UNIT/ML PEN SQ SCH (17:00)
--- NOTE | 2018-08-25 19:02 | NUR ---
PT RESTING ON BED BED SIDE REPORT GIVEN TO ONCOMING NURSE
--- NOTE | 2018-08-25 19:40 | NUR ---
DR BROCK IN UNIT,N/O RECEIVED TO GEOFF JACOBS.
--- NOTE | 2018-08-25 20:00 | NUR ---
JACOBS CATH TAKEN OUT,CATH TIP NOTED INTACT.PT IS DUE TO VOID.INSTRUCTED PT TO CALL FOR ASSISTANCE NEEDED.PT VERBALIZED UNDERSTANDING.BED IN LOWEST/LOCKED POSITION.BED ALARM ACTIVATED.CALL LIGHT WITHIN EASY REACH.
[2018-08-25] MEDS: ATORVASTATIN 40 MG TAB PO SCH (20:57)
[2018-08-25] MEDS: MONTELUKAST SODIUM 10 MG TAB PO SCH (20:57)
--- NOTE | 2018-08-25 22:00 | NUR ---
ASSISTED PT TO BATHROOM,PT AMBULATED WITH WALKER.PT VOIDED.ASSISTED PT BACK TO BED.BED ALARM ON.BED POSITIONED IN THE LOWEST/LOCKED.INSTRUCTED PT TO CALL FOR HELP NEEDED BY PRESSING THE CALL LIGHT. CALL LIGHT WITHIN EASY REACH.
[2018-08-26] VITALS (8 sets, daily range): BP systolic 144–176; BP diastolic 65–105
[2018-08-26] MEDS: ALBUTEROL SULFATE HFA 8GM INHALATION AEROSOL INH PRN ×3 (03:30→20:00)
[2018-08-26] MEDS: ALPRAZOLAM 0.25 MG TAB PO PRN (05:13)
--- NOTE | 2018-08-26 05:13 | NUR ---
PT REQUESTED SOMETHING TO HELP HER RELAX,PT NOTED TO BE RESTLESS.PRN MEDICATION GIVEN PER MAR AT THIS TIME.BED IN LOWEST/LOCKED POSITION.BED ALARM ON.DAUGHTER AT BEDSIDE.CALL LIGHT WITHIN EASY REACH.
[2018-08-26] MEDS: LEVOTHYROXINE SODIUM 125 MCG TAB PO SCH (06:03)
[2018-08-26] MEDS: LEVOTHYROXINE SODIUM 50 MCG TAB PO SCH (06:03)
[2018-08-26] MEDS: SALMETEROL/FLUTICASONE 100/50 INH SCH ×2 (06:42→20:00)
--- NOTE | 2018-08-26 07:17 | NUR ---
REPORT GIVEN TO ONCOMING NURSE.PT RESTING IN BED WITH NO S/S OF DISTRESS.
--- NOTE | 2018-08-26 07:30 | NUR ---
RCD PT AT BED PT IS ALERT AND ORIENTED PT RESTING ON BED NO SIGNS OF ANY DISTRESS NOTED IV PATENT FAMILY AT BED SIDE BED LOW AND LOCKED CALL LIGHT IN REACH
--- NOTE | 2018-08-26 07:40 | NUR ---
IM- Progress Note O/N; no events REVIEW OF SYSTEMS: unobtainable PHYSICAL EXAMINATION VITAL SIGNS: Reviewed. GENERAL: intubated. HEENT: Anicteric. CARDIOVASCULAR: Normal S1 and S2. LUNGS: REDUCED BS THOUGHOUT; ABDOMEN: Soft, nontender and nondistended. EXTREMITIES: No edema or calf tenderness. NEUROLOGICAL: SEDATED; SKIN: Dry. PSYCHIATRIC: Normal affect. LABS: Reviewed. MEDICATIONS: Reviewed. ASSESSMENT AND PLAN: This is a 66-year-old woman with: 1. Acute exacerbation of chronic obstructive pulmonary disease: 2. Chronic Systolic congestive heart failure 3.Hypercapneic respiratory failure 4.Sepsis 5.DM2 6.Hypothyroidism 7. Anxiety/depression: 8.HLD PLAN 1.IV steorids/nebs/IV abx/cultures 2.Nebs/vent per pulm 3.Bolus fluids- hypotensive; 4.Prop; heparin; pepcid 5: Dispo: cct>35mins. d/w son at bedside; 08/22 replace K and phos. f/u CXR; control glucose; Hba1c/LDL 6.8/148; atorvastatin 40. Positive Flu - tamiflu/abx. cct>35mins. 08/23 control glucose; extubated. doing better; cont care. 08/24 doing well; control glucose; transfer to [facility]. PT consult. 08/25 control glucose. doing better; ambulating 08/26 control glucose and BP; xanax; restart home trazodone; prn ambien; wants home, not snf. Sawyer Davis MD, PhD.
[2018-08-26] MEDS: METOPROLOL TARTRATE 50 MG TAB PO SCH ×3 (07:45→17:00)
[2018-08-26] MEDS ORDERED: ZOLPIDEM TARTRATE 5 MG TAB PO PRN (08:00)
[2018-08-26] MEDS: VENLAFAXINE HCL 75 MG CAPCR PO SCH (09:00)
[2018-08-26] MEDS: NYSTATIN 100,000 UNITS/GM CRM 30GM TUBE TOP SCH ×2 (09:00→17:00)
[2018-08-26] MEDS: HEPARIN SOD (PORCINE) 5,000 UNIT/ML VIAL SC SCH ×2 (09:00→21:00)
[2018-08-26] MEDS: FAMOTIDINE 20 MG/2 ML VIAL IV SCH ×2 (09:00→17:00)
[2018-08-26] MEDS: OSELTAMIVIR PHOSPHATE 75 MG CAP PO SCH (09:00)
[2018-08-26] MEDS: ROPINIROLE HCL 1 MG TAB PO SCH ×2 (09:00→17:00)
[2018-08-26] MEDS: INSULIN DETEMIR 100 UNIT/ML PEN SQ SCH ×2 (09:00→17:00)
[2018-08-26] MEDS ORDERED: LABETALOL HCL 5 MG/ML 20ML VIAL IV STA (11:20)
--- NOTE | 2018-08-26 11:20 | NUR ---
PAGED DR BROCK AND NOTIFIED BP 175/105 MM/HG GOT NEW ORDERS
[2018-08-26] MEDS: INSULIN LISPRO 100 UNIT/1 ML 3ML VIAL SQ SCH ×2 (11:30→16:30)
[2018-08-26] MEDS ORDERED: LABETALOL HCL 20 MG/4 ML SYRINGE IV NR ×2 (11:30→12:00)
--- NOTE | 2018-08-26 13:00 | NUR ---
AC TO DR RAGSDALE PT CAN GO HOME IF OK WITH DR DELMY PACHECO AND TALKED DR BROCK HE SAID GO HOME ON TOMORROW
[2018-08-26] MEDS: NIFEDIPINE CR 30 MG TAB PO SCH ×2 (14:00→17:00)
[2018-08-26] MEDS: LEVOFLOXACIN 750MG/D5W 150ML 150 ML IV SCH (15:30)
--- NOTE | 2018-08-26 16:00 | NUR ---
PATIENT REFUSED BED ALARM EXPLAINED THE TO THE IMPORTANCE OF BED ALARM EVENTHOUG SHE REFUSED
--- NOTE | 2018-08-26 19:06 | NUR ---
PT RESTING ON BED BED SIDE REPORT GIVEN TO ONCOMING NURSE
[2018-08-26] MEDS ORDERED: TRAZODONE HCL 50 MG TAB PO SCH (21:00)
[2018-08-26] MEDS: ATORVASTATIN 40 MG TAB PO SCH (21:23)
[2018-08-26] MEDS: MONTELUKAST SODIUM 10 MG TAB PO SCH (21:26)
[2018-08-27 00:57] VITALS: BP 101/58
[2018-08-27 06:10] VITALS: BP 117/72
[2018-08-27] MEDS: LEVOTHYROXINE SODIUM 125 MCG TAB PO SCH (06:22)
[2018-08-27] MEDS: LEVOTHYROXINE SODIUM 50 MCG TAB PO SCH (06:22)
[2018-08-27] MEDS: SALMETEROL/FLUTICASONE 100/50 INH SCH (06:39)
[2018-08-27] MEDS: ALBUTEROL SULFATE HFA 8GM INHALATION AEROSOL INH PRN (06:40)
[2018-08-27] MEDS ORDERED: NIFEDIPINE ER30 M1 PO (07:22)
[2018-08-27] MEDS ORDERED: SINGULAIR10 MG PO (07:22)
[2018-08-27] MEDS ORDERED: Insulin Detemir SQ (07:22)
[2018-08-27] MEDS ORDERED: Insulin Lispro SQ (07:22)
[2018-08-27] MEDS ORDERED: NYSTATIN15 GM TOP (07:22)
--- NOTE | 2018-08-27 07:23 | NUR ---
REPORT GIVEN TO ONCOMING NURSE,WALKING ROUNDS MADE.PT RESTING IN BED WITH NO S/S OF DISTRESS.
[2018-08-27 08:00] VITALS: BP 106/75
[2018-08-27 08:09] VITALS: BP 106/75
--- NOTE | 2018-08-27 08:10 | NUR ---
DIscharge Summary: Principal Dx: ASSESSMENT AND PLAN: This is a 66-year-old woman with: 1. Acute exacerbation of chronic obstructive pulmonary disease: 2. Chronic Systolic congestive heart failure 3.Hypercapneic respiratory failure 4.Sepsis 5.DM2 6.Hypothyroidism 7. Anxiety/depression: 8.HLD Secondary dx: 1.HLD cc and HPI; refer to H&P Hospital course: ASSESSMENT AND PLAN: This is a 66-year-old woman with: 1. Acute exacerbation of chronic obstructive pulmonary disease: 2. Chronic Systolic congestive heart failure 3.Hypercapneic respiratory failure 4.Sepsis 5.DM2 6.Hypothyroidism 7. Anxiety/depression: 8.HLD PLAN 1.IV steorids/nebs/IV abx/cultures 2.Nebs/vent per pulm 3.Bolus fluids- hypotensive; 4.Prop; heparin; pepcid 5: Dispo: cct>35mins. d/w son at bedside; 08/22 replace K and phos. f/u CXR; control glucose; Hba1c/LDL 6.8/148; atorvastatin 40. Positive Flu - tamiflu/abx. cct>35mins. 08/23 control glucose; extubated. doing better; cont care. 08/24 doing well; control glucose; transfer to [facility]. PT consult. 08/25 control glucose. doing better; ambulating 08/26 control glucose and BP; xanax; restart home trazodone; prn ambien; wants home, not snf. 08/27 d/c location home; d/c time>35mins f/u PCP 1 week condition: stable Sawyer Davis MD, PhD.
[2018-08-27] MEDS ORDERED: LEVAQUIN500 MG PO (08:11)
== END 2018-08-27 10:36 | disposition home or self-care (01) | DRG 208 ==
LOC: ER 03:45 → ERHOLD 11:03 → ICU 13:47 → MED/SURG2 08-24 14:15
PROVIDERS: ADMIT Internal Medicine; ATTEND Internal Medicine
PROC: 02HV33Z Insertion of Infusion Device into Superior Vena Cava, Percutaneous Approach (ICD-10-PCS; principal; 2018-08-21)
PROC: 5A1935Z Respiratory Ventilation, Less than 24 Consecutive Hours (ICD-10-PCS; 2018-08-21)
PROC: 0BH17EZ Insertion of Endotracheal Airway into Trachea, Via Natural or Artificial Opening (ICD-10-PCS; 2018-08-21)
DX: J96.22 Acute and chronic respiratory failure with hypercapnia (principal); A41.9 Sepsis, unspecified organism; E87.2 Acidosis; I50.22 Chronic systolic (congestive) heart failure; J44.1 Chronic obstructive pulmonary disease with (acute) exacerbation; E78.5 Hyperlipidemia, unspecified; I11.0 Hypertensive heart disease with heart failure; E03.9 Hypothyroidism, unspecified; E11.65 Type 2 diabetes mellitus with hyperglycemia; J11.1 Influenza due to unidentified influenza virus with other respiratory manifestations; G47.30 Sleep apnea, unspecified; F41.9 Anxiety disorder, unspecified; Z79.4 Long term (current) use of insulin
CPT/HCPCS: 36415; 36600; 51700; 71045; 71046; 80048; 80053; 80061; 82550; 82553; 82805; 82948; 83036; 83735; 83880; 84100; 84132; 84484; 85025; 85610; 85730; 87040; 87070; 87205; 87400; 87449; 93005; 94002; 94003; 94640; 94660; 99285; J0330; J1644; J1650; J1940; J2250; J2920; J2930; J3370; J3475; J7030; J7050

== ENCOUNTER 2018-09-02 13:27 | Observation (INO) | payer MEDICARE ==
[~2018-09-02] VITALS: Ht 149.9 cm; Wt 104.3 kg
[~2018-09-02 13:27] MED LIST changes: +Insulin Detemir SQ; +Insulin Lispro SQ; +NIFEDIPINE ER30 M1 PO; +NYSTATIN15 GM TOP; +OXYBUTYNIN CHLOR5 MG PO
[2018-09-02] MEDS ORDERED: TAMIFLU75 MG PO (13:54)
[2018-09-02] MEDS ORDERED: SODIUM CHLORIDE 0.9% 1000ML 1,000 ML IV STA (13:56)
[2018-09-02 14:14] LABS: CLARITY,URINE CLOUDY (CLEAR); COLOR,URINE YELLOW (YELLOW); LEUKOCYTE ESTERASE ,URINE 1+ (NEGATIVE); NITRITE,URINE NEGATIVE (NEGATIVE); PROTEIN,URINE DIPSTICK 1+ (NEGATIVE)
[2018-09-02 14:15] LABS: BILIRUBIN,URINE 1+ (NEGATIVE); KETONES,URINE 2+ (NEGATIVE); URINE UROBILINOGEN 0.2 mg/dL (0.2 - 1)
[2018-09-02 14:26] LABS: BACTERIA,URINE MANY /HPF; RBC,URINE 0-5 /HPF (0-5); WBC,URINE (MAN) 21-50 /HPF (0-5)
[2018-09-02 14:27] LABS: EPITHELIAL CELLS,URINE MODERATE /LPF
[2018-09-02] MEDS ORDERED: FUROSEMIDE40 MG PO (14:27)
[2018-09-02] MEDS ORDERED: METFORMIN HCL500 MG PO (14:27)
[2018-09-02] MEDS ORDERED: PRAVASTATIN SOD40 MG PO (14:27)
[2018-09-02] MEDS ORDERED: GLIPIZIDE5 MG PO (14:27)
[2018-09-02] MEDS ORDERED: AMLODIPINE BESY10 MG PO (14:27)
[2018-09-02] MEDS ORDERED: ONDANSETRON HCL INJ 2MG/ML 2ML 2 MG/ML VIAL IV ONE (14:30)
[2018-09-02 14:31] LABS: BASOPHILS # (AUTO) 0.1 (0.0-0.1); BASOPHILS % 0.5 % (0.0-1.0); EOSINOPHILS # (AUTO) 0.1 (0.0-0.4); EOSINOPHILS % 0.5 % (0.0-6.0); HEMATOCRIT 39.7 % (34.2-44.1); HEMOGLOBIN 14.5 g/dL (12.0-16.0); LYMPHOCYTES # (AUTO) 1.8 (1.0-3.2); LYMPHOCYTES % 16.7 % (18.0-39.1); MEAN CORPUSCULAR HGB CONC 36.5 g/dL (31-35); MEAN CORPUSCULAR VOLUME 82.2 fL (81-99); MONOCYTES # (AUTO) 1.2 (0.2-0.8); MONOCYTES % 10.5 % (4.4-11.3); NEUTROPHILS # (AUTO) 7.8 (2.1-6.9); NEUTROPHILS % 70.1 % (38.7-80.0); PLATELET COUNT 183 x10e3/uL (140-360); RED BLOOD COUNT 4.83 x10e6/uL (3.6-5.1)
[2018-09-02 14:49] LABS: ALANINE AMINOTRANSFERASE 14 IU/L (0-55); ALBUMIN 3.4 g/dL (3.5-5.0); ALBUMIN/GLOBULIN RATIO 1.3 (0.8-2.0); ALKALINE PHOSPHATASE 70 IU/L (40-150); ANION GAP 15.2 mmol/L (8-16); BLOOD UREA NITROGEN 12 mg/dL (7-26); BUN/CREATININE RATIO 18 (6-25); CALCIUM 8.2 mg/dL (8.4-10.2); CARBON DIOXIDE 25 mmol/L (22-29); CHLORIDE 86 mmol/L (98-107); CREATININE, SERUM 0.65 mg/dL (0.57-1.11); EST GLOMERULAR FILTRATION RATE > 60 ML/MIN (60-); GLUCOSE 169 mg/dL (74-118); POTASSIUM 3.2 mmol/L (3.5-5.1); SODIUM 123 mmol/L (136-145)
[2018-09-02] MEDS ORDERED: CEFTRIAXONE SOD 1 GM VIAL IV ONE (15:00)
[2018-09-02] MEDS ORDERED: CEFTRIAXONE SOD 1 GM/NS 50 ML 50 ML IV ONE (15:30)
--- NOTE | 2018-09-02 16:01 | Diagnostic Imaging Report ---
RADIOGRAPH(S) OF THE ABDOMEN AND PELVIS, 3 view(s) HISTORY: Nausea, vomiting, pain, rule out small bowel obstruction COMPARISON: None available. FINDINGS: On one of the views, a small segment of small bowel within the left upper quadrant of the abdomen measures up to 4.3 cm in diameter. A small amount of air projects in the rectosigmoid region. Posterior fixation hardware and probable interbody spacer at L4-5, incompletely evaluated. The bones are partially obscured by stool and overlying bowel gas. Nonspecific 1.3 cm calcific density projects at the right lateral soft tissues. IMPRESSION: Dilated small bowel within the left upper quadrant the abdomen, primary considerations include a partial small bowel obstruction versus focal ileus. Signed by: Dr. Carson Lee D.O., M.M.M. on 09/02/2018 3:58 PM
[2018-09-02] MEDS ORDERED: SODIUM CHLORIDE FLUSH 10 ML SYR INJ PRN (16:45)
[2018-09-02] MEDS: SODIUM CHLORIDE 0.9% 1000ML 1,000 ML IV SCH (16:55)
[2018-09-02 17:58] VITALS: BP 129/63
[2018-09-02] MEDS ORDERED: HYDROMORPHONE 2MG/ML 2 MG/ML ML IM ONE (18:30)
--- NOTE | 2018-09-02 19:10 | NUR ---
Received patient awake on bed, with ongoing IV fluids, on Nothing by mouth per MD, patient reinstructed, patient verbalized understanding. No complaints of pain at this time. Call light within easy reach, advised family members as well re patient's diet. Will continue to monitor
[2018-09-02 19:55] VITALS: BP 111/53
--- NOTE | 2018-09-02 20:16 | NUR ---
paged Dr. Davis re patient's request to resume ropinirole, awaiting call back
[2018-09-02 21:10] VITALS: BP 111/53
[2018-09-02 23:51] VITALS: BP 132/59
[2018-09-03] MEDS: SODIUM CHLORIDE 0.9% 1000ML 1,000 ML IV SCH ×4 (00:09→20:17)
[2018-09-03 04:00] VITALS: BP 131/58
[2018-09-03 08:00] VITALS: BP 137/63
[2018-09-03] MEDS: PANTOPRAZOLE 40 MG 10ML VIAL IV SCH (08:13)
[2018-09-03 09:10] VITALS: BP 137/63
--- NOTE | 2018-09-03 09:10 | NUR ---
PT RECEIVED SITTING UP IN BED, AA/O X2-3. NO C/O AT PRESENT. ASSESSMENT COMPLETE, VSS. ABD SOFT, BOWEL SOUNDS ABSENT TO UPPER ABD. DISCUSSED PLAN FOR THE DAY. AWAITING PHYSICIAN.
[2018-09-03 12:06] VITALS: BP 121/71
--- NOTE | 2018-09-03 13:00 | NUR ---
Dr. Davis called regarding plan of care and patient is requesting [place], awaiting callback.
--- NOTE | 2018-09-03 15:47 | NUR ---
SOCIAL WORK INITIAL ASSESSMENT Data Steward to bedside to discuss plan of care with patient/family. CM/SW role and care transitions discussed. Anticipated discharge plan discussed along with duration of care. CM/SW discussed patients right to make decisions in care. CM/SW work hours given. Patient lives: IN OWN HOUSE WITH FAMILY Admit/Transfer: VIA ED FROM HOME POA/Emergency contact: BG WOOTEN [phone] Current/Previous Home Health: NONE PCP/Follow-up Care: [facility] Current/Previous DME: WALKER AND WHEELCHAIR AT HOME Other Services: NONE Employment Status: RETIRED Areas of Concerns: NONE Referral Needs: NONE Education Needs: NONE IMM/LAKE given and signed (if applicable): LAKE Goal for discharge: RETURN HOME INDEPENDENTLY CM/SW left business card at the bedside with contact information. Name and number was also written on the patients whiteboard. Patient verbalized understanding of discussion. CM will follow-up with ongoing discharge and transition of care needs.
[2018-09-03] MEDS: CEFTRIAXONE SOD 1 GM/NS 50 ML 50 ML IV SCH (16:18)
[2018-09-03 16:30] VITALS: BP 155/65
--- NOTE | 2018-09-03 16:46 | NUR ---
PRIMARY CARE PHYSICIAN: Dr. Leigh CHIEF COMPLAINT: abdominal pain and low Na HISTORY OF PRESENT ILLNESS: This is a 66-year-old woman with recent admission for COPD exa and CHF, now with abdominal pain, imaging showed partial SBO and found to have low Na. PAST MEDICAL HISTORY: Severe asthma/COPD on 2 L nasal cannula at home for the past 2 years, systolic congestive heart failure, pneumonia, diabetes mellitus, type 2, hypertension, acute respiratory failure with intubation, urinary tract infection, acute metabolic encephalopathy, hyponatremia, hypokalemia, physical deconditioning, hypothyroidism. PAST SURGICAL HISTORY: Cholecystectomy and back surgery. ALLERGIES: PER ELECTRONIC MEDICAL RECORD. FAMILY/SOCIAL HISTORY: Patient is . She has 4 children. No alcohol, illicits or cigarettes. Diabetes and hypertension in the family. MEDICATIONS: Per electronic medical record. REVIEW OF SYSTEMS: unobtainable PHYSICAL EXAMINATION VITAL SIGNS: Reviewed. GENERAL:nad HEENT: Anicteric. CARDIOVASCULAR: Normal S1 and S2. LUNGS: REDUCED BS THOUGHOUT; ABDOMEN: epigastrium tender; no rebound. EXTREMITIES: No edema or calf tenderness. NEUROLOGICAL: soriano; a&ox3 SKIN: Dry. PSYCHIATRIC: Normal affect. LABS: Reviewed. MEDICATIONS: Reviewed. ASSESSMENT AND PLAN: This is a 66-year-old woman with: Partial SBO Hyponatremia HypoKalemia UTI DM2 Systolic CHF- chr COPD DM2 HLD Hypothyroidism Anxiety d/o SEvere obesity BMI 45 PLAN recheck labs rehydrate; enema; bowel reg. may need salt tabs f/u UCx cont abx; add flagyl hba1c/lipids were 6.8/148 earlier this month; SCD; ppi CHeck KUB; IVF; f/u labs; enema. Sawyer Davis MD, PhD.
[2018-09-03 17:21] LABS: ANION GAP 13.2 mmol/L (8-16); BLOOD UREA NITROGEN 5 mg/dL (7-26); BUN/CREATININE RATIO 9 (6-25); CALCIUM 7.9 mg/dL (8.4-10.2); CARBON DIOXIDE 23 mmol/L (22-29); CHLORIDE 100 mmol/L (98-107); CREATININE, SERUM 0.56 mg/dL (0.57-1.11); EST GLOMERULAR FILTRATION RATE > 60 ML/MIN (60-); GLUCOSE 128 mg/dL (74-118); MAGNESIUM 1.4 MG/DL (1.3-2.1); POTASSIUM 3.2 mmol/L (3.5-5.1); SODIUM 133 mmol/L (136-145)
--- NOTE | 2018-09-03 18:00 | NUR ---
Patient refused SSE states she is not constipated.
[2018-09-03] MEDS: SENNOSIDES 8.6 MG TAB PO SCH (18:15)
[2018-09-03] MEDS: DOCUSATE SODIUM 100 MG CAP PO SCH (18:15)
[2018-09-03] MEDS: METRONIDAZOLE 500MG/NS 100ML 100 ML IV SCH (18:15)
[2018-09-03] MEDS: METOPROLOL TARTRATE 25 MG TAB PO SCH (18:15)
--- NOTE | 2018-09-03 20:08 | Diagnostic Imaging Report ---
EXAM: ABDOMEN-1VIEW (KUB) DATE: 09/03/2018 4:42 PM INDICATION: Follow-up small bowel obstruction. COMPARISON: Chest x-ray and KUB 09/02/2018 FINDINGS: LINES/TUBES: None BOWEL PATTERN: Decreased dilation of the small bowel loop in the left abdomen measuring 3.4 cm, previously 4.3 cm. Previous nonspecific 1.3 cm calcification projecting over the right lower lateral soft tissues currently appears to project over the right upper lateral soft tissues. SOFT TISSUES: No abnormal calcifications. No mass effect. LUNG BASES: Grossly clear. BONES: No acute findings. L4-L5 fixation hardware with interdisc spacer. IMPRESSION: Decreased dilation of the small bowel loop in the left abdomen suggesting improving ileus/partial obstruction. Signed by: DR. Sean Medina MD on 09/03/2018 8:05 PM
[2018-09-03] MEDS: MONTELUKAST SODIUM 10 MG TAB PO SCH (20:17)
[2018-09-03] MEDS: PRAVASTATIN 20 MG TAB PO SCH (20:17)
[2018-09-03 20:18] VITALS: BP 118/55
[2018-09-03] MEDS: ALBUTEROL/IPRATROPIUM 3 ML NEB NEB PRN (20:45)
[2018-09-03] MEDS ORDERED: NON-FORMULARY MEDICATION (Pravastatin Sodium 40 MG) PO SCH (21:00)
[2018-09-04] VITALS (7 sets, daily range): BP systolic 122–150; BP diastolic 57–65
[2018-09-04] MEDS: METRONIDAZOLE 500MG/NS 100ML 100 ML IV SCH ×3 (00:45→17:58)
[2018-09-04] MEDS: ONDANSETRON HCL INJ 2MG/ML 2ML 2 MG/ML VIAL IV PRN ×2 (02:15→03:28)
--- NOTE | 2018-09-04 02:43 | NUR ---
Patient pressed call bales with complaints of chest pain. States she has never felt this type of pain before. Stat cardiac markers and 12 lead EKG orders. EKG reads normal sinus rhythm. Patient now states pain is subsiding.
[2018-09-04 02:53] LABS: CREATINE KINASE 105 IU/L (29-168)
[2018-09-04] MEDS ORDERED: HYDROMORPHONE 2MG/ML 2 MG/ML ML IV PRN (03:15)
[2018-09-04] MEDS: LEVOTHYROXINE SODIUM 75 MCG TAB PO SCH (04:55)
[2018-09-04] MEDS: LEVOTHYROXINE SODIUM 100 MCG TAB PO SCH (04:55)
[2018-09-04] MEDS ORDERED: POTASSIUM CHLORIDE 20 MEQ TAB CR PO STA (06:35)
--- NOTE | 2018-09-04 07:00 | NUR ---
Report received patient is awake and alert x3 in NAD. POC discussed. Patient instructed to call for assistance as needed and verbalized understanding. Call bales within reach.
[2018-09-04 08:02] LABS: BASOPHILS % 0.2 % (0.0-1.0); EOSINOPHILS # (AUTO) 0.1 (0.0-0.4); EOSINOPHILS % 0.8 % (0.0-6.0); HEMATOCRIT 41.6 % (34.2-44.1); HEMOGLOBIN 13.7 g/dL (12.0-16.0); LYMPHOCYTES # (AUTO) 1.6 (1.0-3.2); LYMPHOCYTES % 8.9 % (18.0-39.1); MEAN CORPUSCULAR HGB CONC 32.9 g/dL (31-35); MEAN CORPUSCULAR VOLUME 88.1 fL (81-99); MONOCYTES # (AUTO) 1.4 (0.2-0.8); MONOCYTES % 7.6 % (4.4-11.3); NEUTROPHILS # (AUTO) 14.6 (2.1-6.9); NEUTROPHILS % 81.9 % (38.7-80.0); PLATELET COUNT 182 x10e3/uL (140-360); RED BLOOD COUNT 4.72 x10e6/uL (3.6-5.1); RED CELL DISTRIBUTION WIDTH 13.7 % (11.7-14.4)
[2018-09-04 08:26] LABS: ANION GAP 13.9 mmol/L (8-16); BLOOD UREA NITROGEN < 5 mg/dL (7-26); CALCIUM 8.2 mg/dL (8.4-10.2); CARBON DIOXIDE 26 mmol/L (22-29); CHLORIDE 94 mmol/L (98-107); CREATININE, SERUM 0.58 mg/dL (0.57-1.11); EST GLOMERULAR FILTRATION RATE > 60 ML/MIN (60-); GLUCOSE 146 mg/dL (74-118); MAGNESIUM 1.5 MG/DL (1.3-2.1); POTASSIUM 3.9 mmol/L (3.5-5.1); SODIUM 130 mmol/L (136-145)
[2018-09-04 08:27] LABS: BUN/CREATININE RATIO 9 (6-25)
[2018-09-04] MEDS: SODIUM CHLORIDE 0.9% 1000ML 1,000 ML IV SCH ×2 (08:31→16:28)
[2018-09-04] MEDS: METOPROLOL TARTRATE 25 MG TAB PO SCH ×2 (08:53→16:27)
[2018-09-04] MEDS: DOCUSATE SODIUM 100 MG CAP PO SCH ×2 (08:53→16:27)
[2018-09-04] MEDS: VENLAFAXINE HCL 75 MG CAPCR PO SCH (08:53)
[2018-09-04] MEDS: PANTOPRAZOLE 40 MG 10ML VIAL IV SCH (08:53)
[2018-09-04] MEDS: AMLODIPINE BESYLATE 10 MG TAB PO SCH (08:54)
[2018-09-04] MEDS: SENNOSIDES 8.6 MG TAB PO SCH ×2 (08:54→16:27)
[2018-09-04] MEDS ORDERED: LEVOTHYROXINE SODIUM 50 MCG TAB PO SCH (09:00)
[2018-09-04] MEDS ORDERED: VENLAFAXINE HCL 37.5MG XR CAP PO SCH (09:00)
--- NOTE | 2018-09-04 09:00 | NUR ---
Patient tolerated clear liquid diet and advanced to full liquid for lunch.
--- NOTE | 2018-09-04 15:00 | NUR ---
Pt is requesting to stay on full liquid diet until tomorrow states," i couldn't eat anymore."
[2018-09-04] MEDS: CEFTRIAXONE SOD 1 GM/NS 50 ML 50 ML IV SCH (16:27)
[2018-09-04] MEDS: PRAVASTATIN 20 MG TAB PO SCH (20:16)
[2018-09-04] MEDS: MONTELUKAST SODIUM 10 MG TAB PO SCH (20:17)
[2018-09-04] MEDS ORDERED: TRAZODONE HCL 50 MG TAB PO SCH (21:00)
[2018-09-05] VITALS: BP 136/60
[2018-09-05] MEDS: METRONIDAZOLE 500MG/NS 100ML 100 ML IV SCH ×2 (00:10→09:23)
[2018-09-05] MEDS: LEVOTHYROXINE SODIUM 75 MCG TAB PO SCH (05:19)
[2018-09-05] MEDS: LEVOTHYROXINE SODIUM 100 MCG TAB PO SCH (05:19)
[2018-09-05 06:35] VITALS: BP 109/60
--- NOTE | 2018-09-05 06:50 | NUR ---
rounded with security researcher nurse, patient aware of change. Resting in bed with son at bedside, in no distress. Call bales within reach and bed in lowest position.
[2018-09-05] MEDS ORDERED: SENOKOT8.6 MG PO (06:55)
[2018-09-05] MEDS ORDERED: PANTOPRAZOLE SO40 MG PO (06:55)
[2018-09-05] MEDS ORDERED: COLACE100 M1 PO (06:55)
--- NOTE | 2018-09-05 06:58 | NUR ---
IM- Progress Note O/N; no events REVIEW OF SYSTEMS: unobtainable PHYSICAL EXAMINATION VITAL SIGNS: Reviewed. GENERAL:nad HEENT: Anicteric. CARDIOVASCULAR: Normal S1 and S2. LUNGS: REDUCED BS THOUGHOUT; ABDOMEN: epigastrium tender; no rebound. EXTREMITIES: No edema or calf tenderness. NEUROLOGICAL: soriano; a&ox3 SKIN: Dry. PSYCHIATRIC: Normal affect. LABS: Reviewed. MEDICATIONS: Reviewed. ASSESSMENT AND PLAN: This is a 66-year-old woman with: Partial SBO Hyponatremia HypoKalemia UTI DM2 Systolic CHF- chr COPD DM2 HLD Hypothyroidism Anxiety d/o SEvere obesity BMI 45 PLAN recheck labs rehydrate; enema; bowel reg. may need salt tabs f/u UCx cont abx; add flagyl hba1c/lipids were 6.8/148 earlier this month; SCD; ppi CHeck KUB; IVF; f/u labs; enema. E.coli UTI- ceftriaxone; KUB improving; replace K; check labs; Check labs; Swayer Davis MD, PhD.
[2018-09-05 07:00] VITALS: BP 144/63
[2018-09-05 08:44] VITALS: BP 144/63
[2018-09-05] MEDS: SENNOSIDES 8.6 MG TAB PO SCH (09:00)
[2018-09-05] MEDS: DOCUSATE SODIUM 100 MG CAP PO SCH (09:00)
[2018-09-05 09:05] LABS: BASOPHILS % 0.5 % (0.0-1.0); EOSINOPHILS # (AUTO) 0.1 (0.0-0.4); EOSINOPHILS % 1.5 % (0.0-6.0); HEMOGLOBIN 13.1 g/dL (12.0-16.0); LYMPHOCYTES # (AUTO) 1.5 (1.0-3.2); LYMPHOCYTES % 17.2 % (18.0-39.1); MEAN CORPUSCULAR HEMOGLOBIN 28.9 pg (28-32); MEAN CORPUSCULAR HGB CONC 32.8 g/dL (31-35); MEAN CORPUSCULAR VOLUME 88.1 fL (81-99); MONOCYTES # (AUTO) 0.9 (0.2-0.8); MONOCYTES % 10.6 % (4.4-11.3); NEUTROPHILS # (AUTO) 5.9 (2.1-6.9); NEUTROPHILS % 69.5 % (38.7-80.0); PLATELET COUNT 169 x10e3/uL (140-360); RED BLOOD COUNT 4.54 x10e6/uL (3.6-5.1); RED CELL DISTRIBUTION WIDTH 13.6 % (11.7-14.4)
[2018-09-05] MEDS: PANTOPRAZOLE 40 MG 10ML VIAL IV SCH (09:23)
[2018-09-05] MEDS: AMLODIPINE BESYLATE 10 MG TAB PO SCH (09:23)
[2018-09-05] MEDS: METOPROLOL TARTRATE 25 MG TAB PO SCH (09:23)
[2018-09-05] MEDS: VENLAFAXINE HCL 75 MG CAPCR PO SCH (09:23)
[2018-09-05 09:24] LABS: ANION GAP 10.4 mmol/L (8-16); BLOOD UREA NITROGEN < 5 mg/dL (7-26); CALCIUM 8.1 mg/dL (8.4-10.2); CARBON DIOXIDE 26 mmol/L (22-29); CHLORIDE 96 mmol/L (98-107); EST GLOMERULAR FILTRATION RATE > 60 ML/MIN (60-); GLUCOSE 173 mg/dL (74-118); POTASSIUM 3.4 mmol/L (3.5-5.1); SODIUM 129 mmol/L (136-145)
[2018-09-05 09:26] LABS: BUN/CREATININE RATIO 8 (6-25)
[2018-09-05] MEDS ORDERED: SODIUM CHLORIDE 1 GM TAB PO SCH ×3 (11:45→21:00)
[2018-09-05 12:31] VITALS: BP 127/56
[2018-09-05] MEDS: ALBUTEROL/IPRATROPIUM 3 ML NEB NEB PRN (13:10)
[2018-09-05] MEDS: SODIUM CHLORIDE 0.9% 1000ML 1,000 ML IV SCH (15:30)
[2018-09-05] MEDS ORDERED: SODIUM CHLORIDE1 GM PO (16:49)
[2018-09-05 17:06] VITALS: BP 121/58
--- NOTE | 2018-09-05 17:14 | NUR ---
discharge instructions given to patient, daughter and patient verbalized understanding. IV discontinued at this time, catheter in tact and small bandage applied. Patient to be wheeled from floor to personal auto for daughter to take home.
[2018-09-06] MEDS ORDERED: SODIUM CHLORIDE 1 GM TAB PO ONE (11:00)
--- NOTE | 2018-09-14 07:03 | NUR ---
Discharge summary Principal Dx: IM- Progress Note ASSESSMENT AND PLAN: This is a 66-year-old woman with: Partial SBO Hyponatremia HypoKalemia UTI DM2 Systolic CHF- chr COPD DM2 HLD Hypothyroidism Anxiety d/o SEvere obesity BMI 45 Secondary Dx: DM2 cc and HPI; see H&P Hospital Course: ASSESSMENT AND PLAN: This is a 66-year-old woman with: Partial SBO Hyponatremia HypoKalemia UTI DM2 Systolic CHF- chr COPD DM2 HLD Hypothyroidism Anxiety d/o SEvere obesity BMI 45 PLAN recheck labs rehydrate; enema; bowel reg. may need salt tabs f/u UCx cont abx; add flagyl hba1c/lipids were 6.8/148 earlier this month; SCD; ppi CHeck KUB; IVF; f/u labs; enema. E.coli UTI- ceftriaxone; KUB improving; replace K; check labs; Check labs; f/u PCP 1 week d/c time >35mins condition: stable d/c meds; see SIDDHARTH Davis MD, PhD.
== END 2018-09-05 17:25 | disposition home or self-care (01) ==
LOC: ER 13:27 → ERHOLD 16:38 → IMCU 17:28
PROVIDERS: ADMIT Internal Medicine; ATTEND Internal Medicine
DX: K56.600 Partial intestinal obstruction, unspecified as to cause (principal); E87.1 Hypo-osmolality and hyponatremia; E87.6 Hypokalemia; N39.0 Urinary tract infection, site not specified; I11.0 Hypertensive heart disease with heart failure; I50.22 Chronic systolic (congestive) heart failure; J44.9 Chronic obstructive pulmonary disease, unspecified; E78.5 Hyperlipidemia, unspecified; E03.9 Hypothyroidism, unspecified; E11.9 Type 2 diabetes mellitus without complications; E66.01 Morbid (severe) obesity due to excess calories; Z68.42 Body mass index [BMI] 45.0-49.9, adult; F41.9 Anxiety disorder, unspecified; B96.20 Unspecified Escherichia coli [E. coli] as the cause of diseases classified elsewhere; J45.909 Unspecified asthma, uncomplicated
CPT/HCPCS: 36415 ×4; 74018; 74022; 80048 ×3; 80053; 81001; 82550; 82553; 82948 ×4; 83735 ×2; 84295; 84484; 85025 ×3; 87086; 87186; 93005 ×2; 94640 ×2; 96360; 96361; 99284; G0378 ×4; J0696 ×3; J1170; J2405 ×2; J7030 ×4

== ENCOUNTER 2021-03-27 11:39 | Emergency (ER) | payer MEDICARE ==
[~2021-03-27] VITALS: Ht 149.9 cm; Wt 104.3 kg
[~2021-03-27 11:39] MED LIST changes: +COLACE100 M1 PO; +METFORMIN HCL500 MG PO; +PANTOPRAZOLE SO40 MG PO; +PRAVASTATIN SOD40 MG PO; +SENOKOT8.6 MG PO; +SODIUM CHLORIDE1 GM PO; +TAMIFLU75 MG PO
[2021-03-27] MEDS ORDERED: ONDANSETRON HCL INJ 2MG/ML 2ML 2 MG/ML VIAL IV STA (12:13)
[2021-03-27 12:45] LABS: BASOPHILS % 0.5 % (0.0-1.0); EOSINOPHILS # (AUTO) 0.2 (0.0-0.4); EOSINOPHILS % 1.8 % (0.0-6.0); HEMATOCRIT 41.5 % (34.2-44.1); HEMOGLOBIN 13.3 g/dL (12.0-16.0); LYMPHOCYTES % 22.2 % (18.0-39.1); MEAN CORPUSCULAR HEMOGLOBIN 28.9 pg (28-32); MONOCYTES # (AUTO) 0.7 (0.2-0.8); NEUTROPHILS # (AUTO) 5.9 (2.1-6.9); NEUTROPHILS % 67.2 % (38.7-80.0); PLATELET COUNT 175 x10e3/uL (140-360); RED BLOOD COUNT 4.61 x10e6/uL (3.6-5.1); RED CELL DISTRIBUTION WIDTH 13.7 % (11.7-14.4)
[2021-03-27 12:51] LABS: INR 0.97; PARTIAL THROMBOPLASTIN TIME 21.9 seconds (23.8-35.5); PROTHROMBIN TIME 13.1 seconds (11.9-14.5)
[2021-03-27 13:16] LABS: ALBUMIN 3.8 g/dL (3.5-5.0); ALBUMIN/GLOBULIN RATIO 1.4 (0.8-2.0); ANION GAP 14.6 mmol/L (8-16); CREATININE, SERUM 0.62 mg/dL (0.57-1.11); MAGNESIUM 1.3 MG/DL (1.3-2.1); POTASSIUM 4.6 mmol/L (3.5-5.1)
[2021-03-27 13:22] LABS: CREATINE KINASE MB 2.9 ng/mL (0-5.0)
[2021-03-27] MEDS ORDERED: IOPAMIDOL 370 MG/ML 200 ML INFUS..BTL INJ ONE (15:09)
[2021-03-27] MEDS ORDERED: SODIUM CHLORIDE 0.9% 50ML 50 ML ONE (15:09)
[2021-03-27 15:41] LABS: CLARITY,URINE HAZY (CLEAR); COLOR,URINE YELLOW (YELLOW); KETONES,URINE NEGATIVE (NEGATIVE); LEUKOCYTE ESTERASE ,URINE TRACE (NEGATIVE); NITRITE,URINE NEGATIVE (NEGATIVE); PROTEIN,URINE DIPSTICK NEGATIVE (NEGATIVE); URINE UROBILINOGEN 0.2 mg/dL (0.2 - 1)
[2021-03-27 15:43] LABS: BACTERIA,URINE FEW /HPF; EPITHELIAL CELLS,URINE FEW /LPF
== END 2021-03-27 16:28 | disposition home or self-care (01) ==
LOC: ER 12:17
DX: R11.2 Nausea with vomiting, unspecified (principal); R10.30 Lower abdominal pain, unspecified; N39.0 Urinary tract infection, site not specified; R19.7 Diarrhea, unspecified; E11.65 Type 2 diabetes mellitus with hyperglycemia; I10 Essential (primary) hypertension; E78.5 Hyperlipidemia, unspecified; J44.9 Chronic obstructive pulmonary disease, unspecified; I50.9 Heart failure, unspecified; E66.01 Morbid (severe) obesity due to excess calories
CPT/HCPCS: 36415; 71045; 74177; 80053; 81001; 82550; 82553; 83690; 83735; 83880; 84484; 85025; 85610; 85730; 87086; 87186; 93005; 99284; C9113; J2405; Q9967

== ENCOUNTER 2021-05-20 13:00 | Emergency (ER) | payer MEDICARE, OTHER ==
[~2021-05-20] VITALS: Ht 149.9 cm; Wt 104.3 kg
[2021-05-20] MEDS ORDERED: ONDANSETRON HCL 4 MG ORAL DISINTEGRATING TAB PO ONE (14:00)
[2021-05-20] MEDS ORDERED: ACETAMINOPHEN 325 MG TAB PO ONE (14:00)
== END 2021-05-20 17:44 | disposition home or self-care (01) ==
LOC: ER 13:50
DX: S00.33XA Contusion of nose, initial encounter (principal); W01.0XXA Fall on same level from slipping, tripping and stumbling without subsequent striking against object, initial encounter; R11.2 Nausea with vomiting, unspecified; Y93.01 Activity, walking, marching and hiking; Y92.89 Other specified places as the place of occurrence of the external cause; I10 Essential (primary) hypertension; E11.9 Type 2 diabetes mellitus without complications; E78.5 Hyperlipidemia, unspecified; E03.9 Hypothyroidism, unspecified; J44.9 Chronic obstructive pulmonary disease, unspecified; I50.9 Heart failure, unspecified; E66.01 Morbid (severe) obesity due to excess calories; Z99.81 Dependence on supplemental oxygen
CPT/HCPCS: 70450; 70486; 99283; Q0162

== ENCOUNTER 2022-10-09 17:31 | Inpatient (IN) | payer MEDICARE ==
[~2022-10-09] VITALS: Ht 154.9 cm; Wt 79.4 kg
[2022-10-09 17:56] LABS: BASOPHILS % 0.3 % (0.0-1.0); EOSINOPHILS # (AUTO) 0.1 (0.0-0.4); EOSINOPHILS % 0.4 % (0.0-6.0); HEMOGLOBIN 12.5 g/dL (12.0-16.0); LYMPHOCYTES # (AUTO) 0.9 (1.0-3.2); LYMPHOCYTES % 7.7 % (18.0-39.1); MEAN CORPUSCULAR HEMOGLOBIN 29.3 pg (28-32); MEAN CORPUSCULAR HGB CONC 33.8 g/dL (31-35); MEAN CORPUSCULAR VOLUME 86.9 fL (81-99); MONOCYTES # (AUTO) 0.5 (0.2-0.8); MONOCYTES % 4.1 % (4.4-11.3); NEUTROPHILS # (AUTO) 10.3 (2.1-6.9); NEUTROPHILS % 86.9 % (38.7-80.0); PLATELET COUNT 156 x10e3/uL (140-360); RED BLOOD COUNT 4.26 x10e6/uL (3.6-5.1); RED CELL DISTRIBUTION WIDTH 13.5 % (11.7-14.4)
[2022-10-09 18:12] LABS: ALANINE AMINOTRANSFERASE 13 IU/L (0-55); ALBUMIN 3.4 g/dL (3.5-5.0); ALBUMIN/GLOBULIN RATIO 1.2 (0.8-2.0); ALKALINE PHOSPHATASE 60 IU/L (40-150); BLOOD UREA NITROGEN 9 mg/dL (7-26); BUN/CREATININE RATIO 15 (6-25); CARBON DIOXIDE 24 mmol/L (22-29); CHLORIDE 93 mmol/L (98-107); CREATINE KINASE 134 IU/L (29-168); CREATININE, SERUM 0.61 mg/dL (0.57-1.11); GLUCOSE 192 mg/dL (74-118); SODIUM 126 mmol/L (136-145)
[2022-10-09] MEDS ORDERED: ONDANSETRON HCL INJ 2MG/ML 2ML 2 MG/ML VIAL IV STA ×2 (18:26→21:51)
[2022-10-09] MEDS ORDERED: IOPAMIDOL 370 MG/ML 100 ML INFUS..BTL INJ ONE (18:36)
[2022-10-09 21:00] LABS: CLARITY,URINE SL CLOUDY (CLEAR); COLOR,URINE YELLOW (YELLOW)
[2022-10-09 21:01] LABS: KETONES,URINE 1+ (NEGATIVE); LEUKOCYTE ESTERASE ,URINE NEGATIVE (NEGATIVE); NITRITE,URINE NEGATIVE (NEGATIVE); PROTEIN,URINE DIPSTICK NEGATIVE (NEGATIVE); URINE UROBILINOGEN 0.2 mg/dL (0.2 - 1)
[2022-10-09 22:06] LABS: BACTERIA,URINE FEW /HPF; EPITHELIAL CELLS,URINE FEW /LPF; WBC,URINE (MAN) 21-50 /HPF (0-5)
[2022-10-09] MEDS ORDERED: ONDANSETRON HCL INJ 2MG/ML 2ML 2 MG/ML VIAL ONE (22:07)
[2022-10-09] MEDS ORDERED: DEXTROSE 50% SYRINGE 50 ML IV PRN (22:30)
[2022-10-10] VITALS (9 sets, daily range): BP systolic 133–167; BP diastolic 55–75
[2022-10-10] MEDS: SODIUM CHLORIDE 0.9% 1000ML 1,000 ML IV SCH ×2 (00:49→15:42)
[2022-10-10] MEDS: ONDANSETRON HCL INJ 2MG/ML 2ML 2 MG/ML VIAL IV PRN ×4 (04:35→22:40)
[2022-10-10] MEDS ORDERED: NEURONTIN100 MG PO (05:15)
[2022-10-10] MEDS ORDERED: TOBRAMYCIN OU (05:15)
[2022-10-10] MEDS ORDERED: ASPIRIN CHEW81 MG PO (05:15)
[2022-10-10] MEDS ORDERED: RYBELSUS14 MG (05:15)
[2022-10-10] MEDS ORDERED: PRAMIPEXOLE0.375 MG (05:15)
[2022-10-10] MEDS ORDERED: OMEPRAZOLE20 MG (05:15)
[2022-10-10 06:38] LABS: BASOPHILS % 0.3 % (0.0-1.0); EOSINOPHILS % 0.3 % (0.0-6.0); HEMATOCRIT 38.4 % (34.2-44.1); HEMOGLOBIN 13.1 g/dL (12.0-16.0); LYMPHOCYTES # (AUTO) 1.2 (1.0-3.2); MEAN CORPUSCULAR HGB CONC 34.1 g/dL (31-35); MONOCYTES # (AUTO) 0.7 (0.2-0.8); MONOCYTES % 5.9 % (4.4-11.3); NEUTROPHILS # (AUTO) 9.1 (2.1-6.9); NEUTROPHILS % 81.7 % (38.7-80.0); PLATELET COUNT 159 x10e3/uL (140-360); RED BLOOD COUNT 4.52 x10e6/uL (3.6-5.1)
[2022-10-10 06:57] LABS: ALANINE AMINOTRANSFERASE 12 IU/L (0-55); ALBUMIN 3.4 g/dL (3.5-5.0); ALBUMIN/GLOBULIN RATIO 1.1 (0.8-2.0); ALKALINE PHOSPHATASE 63 IU/L (40-150); ANION GAP 13.3 mmol/L (8-16); BLOOD UREA NITROGEN < 5 mg/dL (7-26); CALCIUM 8.9 mg/dL (8.4-10.2); CARBON DIOXIDE 25 mmol/L (22-29); CHLORIDE 87 mmol/L (98-107); CREATININE, SERUM 0.55 mg/dL (0.57-1.11); GLUCOSE 176 mg/dL (74-118); POTASSIUM 3.3 mmol/L (3.5-5.1); SODIUM 122 mmol/L (136-145)
[2022-10-10 06:58] LABS: BUN/CREATININE RATIO 9 (6-25)
[2022-10-10 07:20] LABS: CREATINE KINASE 90 IU/L (29-168)
[2022-10-10] MEDS: SODIUM CHLORIDE 1 GM TAB PO SCH ×3 (08:11→21:00)
[2022-10-10] MEDS: METRONIDAZOLE 500MG/NS 100ML 100 ML IV SCH ×3 (08:11→23:22)
[2022-10-10] MEDS: INSULIN REGULAR, HUMAN 100 UNIT/1 ML SQ SCH ×4 (08:19→21:00)
[2022-10-10] MEDS: Morphine 4mg INJECTION 4 MG/ML INJ IV PRN ×2 (14:12→22:40)
[2022-10-10 17:08] LABS: CREATINE KINASE MB 2.6 ng/mL (0-5.0)
[2022-10-10] MEDS: SODIUM CHLORIDE 3% 500 ML IV SCH (23:23)
[2022-10-11] VITALS (26 sets, daily range): BP systolic 89–165; BP diastolic 50–108
[2022-10-11] MEDS: SODIUM CHLORIDE 3% 500 ML IV SCH ×2 (03:37→12:44)
[2022-10-11] MEDS: ONDANSETRON HCL INJ 2MG/ML 2ML 2 MG/ML VIAL IV PRN ×2 (06:00→22:37)
[2022-10-11] MEDS: Morphine 4mg INJECTION 4 MG/ML INJ IV PRN ×2 (06:00→22:37)
[2022-10-11] MEDS: INSULIN REGULAR, HUMAN 100 UNIT/1 ML SQ SCH ×4 (08:17→20:26)
[2022-10-11] MEDS: SODIUM CHLORIDE 1 GM TAB PO SCH ×3 (09:40→20:06)
[2022-10-11] MEDS: AMLODIPINE BESYLATE 10 MG TAB PO SCH (09:42)
[2022-10-11] MEDS: POTASSIUM CHLORIDE 20MEQ/100ML 100 ML IV SCH ×2 (09:43→11:32)
[2022-10-11] MEDS: ASPIRIN 81 MG CHEW TAB PO SCH (09:43)
[2022-10-11] MEDS: METRONIDAZOLE 500MG/NS 100ML 100 ML IV SCH ×3 (09:45→22:38)
[2022-10-11 10:19] LABS: BASOPHILS # (AUTO) 0.1 (0.0-0.1); BASOPHILS % 0.6 % (0.0-1.0); EOSINOPHILS # (AUTO) 0.1 (0.0-0.4); EOSINOPHILS % 1.3 % (0.0-6.0); HEMOGLOBIN 13.6 g/dL (12.0-16.0); LYMPHOCYTES # (AUTO) 1.2 (1.0-3.2); LYMPHOCYTES % 14.3 % (18.0-39.1); MEAN CORPUSCULAR HEMOGLOBIN 30.8 pg (28-32); MEAN CORPUSCULAR HGB CONC 35.8 g/dL (31-35); MEAN CORPUSCULAR VOLUME 86.2 fL (81-99); MONOCYTES % 11.1 % (4.4-11.3); NEUTROPHILS # (AUTO) 6.2 (2.1-6.9); PLATELET COUNT 160 x10e3/uL (140-360); RED BLOOD COUNT 4.41 x10e6/uL (3.6-5.1); RED CELL DISTRIBUTION WIDTH 13.1 % (11.7-14.4)
[2022-10-11 10:38] LABS: ANION GAP 13.3 mmol/L (8-16); CALCIUM 8.2 mg/dL (8.4-10.2); CREATININE, SERUM 0.61 mg/dL (0.57-1.11); MAGNESIUM 1.4 MG/DL (1.3-2.1); PHOSPHORUS 2.4 MG/DL (2.3-4.7); POTASSIUM 3.3 mmol/L (3.5-5.1)
[2022-10-11] MEDS: MUPIROCIN 2% OINT 22 GM TUBE TOP SCH (20:06)
[2022-10-11] MEDS: GABAPENTIN 100 MG CAP PO SCH (20:06)
[2022-10-12] VITALS (17 sets, daily range): BP systolic 99–147; BP diastolic 47–110
[2022-10-12] MEDS: SODIUM CHLORIDE 3% 500 ML IV SCH (03:38)
[2022-10-12] MEDS: METOCLOPRAMIDE HCL 10 MG/2ML VIAL IV SCH ×3 (06:12→18:46)
[2022-10-12 06:14] LABS: BASOPHILS # (AUTO) 0.1 (0.0-0.1); EOSINOPHILS # (AUTO) 0.1 (0.0-0.4); EOSINOPHILS % 2.1 % (0.0-6.0); HEMATOCRIT 36.3 % (34.2-44.1); HEMOGLOBIN 13.1 g/dL (12.0-16.0); LYMPHOCYTES # (AUTO) 1.6 (1.0-3.2); LYMPHOCYTES % 25.8 % (18.0-39.1); MEAN CORPUSCULAR HGB CONC 36.1 g/dL (31-35); MEAN CORPUSCULAR VOLUME 91.4 fL (81-99); MONOCYTES # (AUTO) 0.9 (0.2-0.8); MONOCYTES % 13.7 % (4.4-11.3); NEUTROPHILS # (AUTO) 3.5 (2.1-6.9); NEUTROPHILS % 56.1 % (38.7-80.0); PLATELET COUNT 189 x10e3/uL (140-360); RED BLOOD COUNT 3.97 x10e6/uL (3.6-5.1); RED CELL DISTRIBUTION WIDTH 17.4 % (11.7-14.4)
[2022-10-12 06:23] LABS: ALBUMIN/GLOBULIN RATIO 1.2 (0.8-2.0); ANION GAP 11.9 mmol/L (8-16); CALCIUM 8.3 mg/dL (8.4-10.2); CREATININE, SERUM 0.61 mg/dL (0.57-1.11); POTASSIUM 3.9 mmol/L (3.5-5.1)
[2022-10-12] MEDS: INSULIN REGULAR, HUMAN 100 UNIT/1 ML SQ SCH ×4 (07:30→21:00)
[2022-10-12] MEDS: SODIUM CHLORIDE 1 GM TAB PO SCH ×4 (09:00→21:20)
[2022-10-12 09:11] LABS: ALBUMIN 3.4 g/dL (3.5-5.0); ALBUMIN/GLOBULIN RATIO 1.2 (0.8-2.0); CALCIUM 8.5 mg/dL (8.4-10.2); CREATININE, SERUM 0.66 mg/dL (0.57-1.11)
[2022-10-12] MEDS: ASPIRIN 81 MG CHEW TAB PO SCH (09:11)
[2022-10-12] MEDS: MUPIROCIN 2% OINT 22 GM TUBE TOP SCH ×2 (09:11→21:21)
[2022-10-12] MEDS: METRONIDAZOLE 500MG/NS 100ML 100 ML IV SCH ×2 (09:11→16:11)
[2022-10-12] MEDS: AMLODIPINE BESYLATE 10 MG TAB PO SCH (09:40)
[2022-10-12] MEDS: ONDANSETRON HCL INJ 2MG/ML 2ML 2 MG/ML VIAL IV PRN (13:41)
[2022-10-12] MEDS ORDERED: Morphine 4mg INJECTION 4 MG/ML INJ IV ONE (14:00)
[2022-10-12] MEDS ORDERED: DEXTROSE 5% 1,000 ML IV SCH (17:15)
[2022-10-12] MEDS ORDERED: DEXTROSE 5% 250 ML IV SCH (21:15)
[2022-10-12] MEDS: GABAPENTIN 100 MG CAP PO SCH (21:20)
[2022-10-13] VITALS (12 sets, daily range): BP systolic 101–136; BP diastolic 48–92
[2022-10-13] MEDS: METOCLOPRAMIDE HCL 10 MG/2ML VIAL IV SCH ×5 (00:54→23:28)
[2022-10-13] MEDS: METRONIDAZOLE 500MG/NS 100ML 100 ML IV SCH ×4 (00:54→23:29)
[2022-10-13 06:35] LABS: BASOPHILS # (AUTO) 0.1 (0.0-0.1); BASOPHILS % 0.6 % (0.0-1.0); EOSINOPHILS # (AUTO) 0.2 (0.0-0.4); EOSINOPHILS % 2.7 % (0.0-6.0); HEMOGLOBIN 12.2 g/dL (12.0-16.0); LYMPHOCYTES # (AUTO) 1.9 (1.0-3.2); LYMPHOCYTES % 21.4 % (18.0-39.1); MEAN CORPUSCULAR VOLUME 87.9 fL (81-99); MONOCYTES # (AUTO) 1.1 (0.2-0.8); MONOCYTES % 12.6 % (4.4-11.3); NEUTROPHILS # (AUTO) 5.4 (2.1-6.9); NEUTROPHILS % 61.7 % (38.7-80.0); PLATELET COUNT 164 x10e3/uL (140-360); RED BLOOD COUNT 4.21 x10e6/uL (3.6-5.1)
[2022-10-13 07:00] LABS: ALANINE AMINOTRANSFERASE 11 IU/L (0-55); ALBUMIN 3.2 g/dL (3.5-5.0); ALBUMIN/GLOBULIN RATIO 1.2 (0.8-2.0); ALKALINE PHOSPHATASE 54 IU/L (40-150); ANION GAP 12.3 mmol/L (8-16); BLOOD UREA NITROGEN < 5 mg/dL (7-26); CALCIUM 8.7 mg/dL (8.4-10.2); CARBON DIOXIDE 24 mmol/L (22-29); CHLORIDE 103 mmol/L (98-107); CREATININE, SERUM 0.59 mg/dL (0.57-1.11); GLUCOSE 128 mg/dL (74-118); POTASSIUM 3.3 mmol/L (3.5-5.1); SODIUM 136 mmol/L (136-145)
[2022-10-13 07:02] LABS: BUN/CREATININE RATIO 8 (6-25)
[2022-10-13 07:19] LABS: MAGNESIUM 1.2 MG/DL (1.3-2.1); PHOSPHORUS 2.8 MG/DL (2.3-4.7)
[2022-10-13] MEDS ORDERED: MAGNESIUM SULFATE 2GM/50ML 50 ML IV ONE (09:30)
[2022-10-13] MEDS ORDERED: POTASSIUM CHLORIDE 20 MEQ TAB CR PO ONE (09:30)
[2022-10-13] MEDS: ASPIRIN 81 MG CHEW TAB PO SCH (09:54)
[2022-10-13] MEDS: AMLODIPINE BESYLATE 10 MG TAB PO SCH (09:55)
[2022-10-13] MEDS: INSULIN REGULAR, HUMAN 100 UNIT/1 ML SQ SCH ×4 (10:00→21:09)
[2022-10-13] MEDS: PRAMIPEXOLE DIHYDROCHLORIDE 0.25 MG TAB PO SCH ×2 (10:10→21:00)
[2022-10-13] MEDS: MUPIROCIN 2% OINT 22 GM TUBE TOP SCH ×2 (10:17→21:00)
[2022-10-13 15:34] LABS: CHOL/HDL RATIO 4.4 (3.0-3.6)
[2022-10-13] MEDS ORDERED: TRAZODONE HCL 50 MG TAB PO SCH (21:00)
[2022-10-13] MEDS: GABAPENTIN 100 MG CAP PO SCH (21:00)
[2022-10-14] VITALS: BP 157/86
[2022-10-14 04:00] VITALS: BP 149/79
[2022-10-14] MEDS: METOCLOPRAMIDE HCL 10 MG/2ML VIAL IV SCH (05:06)
[2022-10-14 08:00] VITALS: BP 124/65
[2022-10-14] MEDS: ASPIRIN 81 MG CHEW TAB PO SCH (08:39)
[2022-10-14] MEDS: PRAMIPEXOLE DIHYDROCHLORIDE 0.25 MG TAB PO SCH (08:39)
[2022-10-14] MEDS: AMLODIPINE BESYLATE 10 MG TAB PO SCH (08:40)
[2022-10-14] MEDS: MUPIROCIN 2% OINT 22 GM TUBE TOP SCH (08:41)
[2022-10-14] MEDS: METRONIDAZOLE 500MG/NS 100ML 100 ML IV SCH (08:41)
[2022-10-14] MEDS ORDERED: METRONIDAZOLE500 MG PO (08:43)
[2022-10-14] MEDS ORDERED: PANTOPRAZOLE SO40 MG PO (08:43)
[2022-10-14] MEDS ORDERED: CEPHALEXIN500 MG PO (08:43)
[2022-10-14] MEDS: INSULIN REGULAR, HUMAN 100 UNIT/1 ML SQ SCH (08:47)
[2022-10-14] MEDS ORDERED: POTASSIUM CHLORIDE 20 MEQ TAB CR PO ONE (09:00)
[2022-10-14 09:04] VITALS: BP 124/65
== END 2022-10-14 10:40 | disposition home or self-care (01) | DRG 690 ==
LOC: ER 17:38 → ERHOLD 22:29 → MED/SURG3 23:58 → ICU 10-10 20:17 → MED/SURG2 10-13 07:31
PROVIDERS: ADMIT Internal Medicine; ATTEND Internal Medicine
DX: N39.0 Urinary tract infection, site not specified (principal); E87.1 Hypo-osmolality and hyponatremia; I50.22 Chronic systolic (congestive) heart failure; K52.9 Noninfective gastroenteritis and colitis, unspecified; E83.42 Hypomagnesemia; E87.6 Hypokalemia; I11.0 Hypertensive heart disease with heart failure; J44.9 Chronic obstructive pulmonary disease, unspecified; I48.91 Unspecified atrial fibrillation; E03.9 Hypothyroidism, unspecified; I25.10 Atherosclerotic heart disease of native coronary artery without angina pectoris; F32.A Depression, unspecified; E78.5 Hyperlipidemia, unspecified; M54.9 Dorsalgia, unspecified; E11.40 Type 2 diabetes mellitus with diabetic neuropathy, unspecified; G89.29 Other chronic pain; G25.81 Restless legs syndrome; E66.01 Morbid (severe) obesity due to excess calories; Z90.49 Acquired absence of other specified parts of digestive tract; Z20.822 Contact with and (suspected) exposure to COVID-19; Z79.4 Long term (current) use of insulin; Z99.81 Dependence on supplemental oxygen
CPT/HCPCS: 36415; 36569; 70450; 71045; 74019; 74177; 80048; 80053; 80061; 81001; 82550; 82553; 82948; 83036; 83690; 83735; 83930; 83935; 84100; 84295; 84300; 84484; 85025; 87086; 93005; 94799; 99252; 99284; J0696; J1817; J2270; J2405; J2765; J3475; J3480; J7030; J7070; Q9967

== ENCOUNTER 2024-05-08 18:15 | Emergency (ER) | payer MEDICARE ==
[~2024-05-08] VITALS: Ht 144.8 cm; Wt 75.7 kg
[~2024-05-08 18:15] MED LIST changes: +AMOXICILLIN500 MG PO; +ASPIRIN CHEW81 MG PO; +CEPHALEXIN500 MG PO; +METRONIDAZOLE500 MG PO; +NEURONTIN100 MG PO; +NYSTATIN100000 UNI PO; +OMEPRAZOLE20 MG; +ONDANSETRON ODT4 MG SL; +PRAMIPEXOLE0.375 MG; +RYBELSUS14 MG; +TOBRAMYCIN OU
[2024-05-08 18:30] VITALS: PULSE 71; RESP 18; TEMP 98.6
[2024-05-08] MEDS ORDERED: IBUPROFEN200 MG PO (19:02)
[2024-05-08] MEDS ORDERED: TYLENOL325 MG PO (19:02)
[2024-05-08 19:59] VITALS: BP 129/62; PULSE 71; RESP 18; TEMP 98.3; O2SAT 98
== END 2024-05-08 20:01 | disposition home or self-care (01) ==
LOC: FSED 18:18
DX: S00.83XA Contusion of other part of head, initial encounter (principal); S00.11XA Contusion of right eyelid and periocular area, initial encounter; S20.214A Contusion of middle front wall of thorax, initial encounter; S90.121A Contusion of right lesser toe(s) without damage to nail, initial encounter; W06.XXXA Fall from bed, initial encounter; Y92.89 Other specified places as the place of occurrence of the external cause; I10 Essential (primary) hypertension; E11.65 Type 2 diabetes mellitus with hyperglycemia; J44.9 Chronic obstructive pulmonary disease, unspecified; I50.9 Heart failure, unspecified; I48.91 Unspecified atrial fibrillation; D64.9 Anemia, unspecified; E78.5 Hyperlipidemia, unspecified; F41.9 Anxiety disorder, unspecified; K21.9 Gastro-esophageal reflux disease without esophagitis; M54.9 Dorsalgia, unspecified; G89.29 Other chronic pain; E66.01 Morbid (severe) obesity due to excess calories; Z99.81 Dependence on supplemental oxygen
CPT/HCPCS: 36415; 70450; 70486; 71046; 82948; 99283

== ENCOUNTER 2024-09-09 09:18 | Emergency (ER) | payer SELFPAY ==
[~2024-09-09] VITALS: Ht 147.3 cm; Wt 77.1 kg
[~2024-09-09 09:18] MED LIST changes: +IBUPROFEN200 MG PO; +TYLENOL325 MG PO
[2024-09-09] MEDS ORDERED: ULTRAM 50MG50 MG PO (10:33)
[2024-09-09 10:43] VITALS: PULSE 57; RESP 18; O2SAT 99
[2024-09-09 10:56] VITALS: PULSE 58; RESP 18; TEMP 97.8
[2024-09-09 10:57] VITALS: BP 93/48; PULSE 0; RESP 18; TEMP 97.8; O2SAT 99
== END 2024-09-09 11:00 | disposition home or self-care (01) ==
LOC: ER 09:21
DX: S22.42XA Multiple fractures of ribs, left side, initial encounter for closed fracture (principal); W07.XXXA Fall from chair, initial encounter; Y92.89 Other specified places as the place of occurrence of the external cause; I10 Essential (primary) hypertension; E11.9 Type 2 diabetes mellitus without complications; J44.9 Chronic obstructive pulmonary disease, unspecified; I50.9 Heart failure, unspecified; I48.91 Unspecified atrial fibrillation; D64.9 Anemia, unspecified; F41.9 Anxiety disorder, unspecified; F32.A Depression, unspecified; K21.9 Gastro-esophageal reflux disease without esophagitis; E78.5 Hyperlipidemia, unspecified; E66.01 Morbid (severe) obesity due to excess calories; M54.9 Dorsalgia, unspecified; G89.29 Other chronic pain; Z99.81 Dependence on supplemental oxygen
CPT/HCPCS: 70450; 71250; 93005; 94799; 99284

== ENCOUNTER 2024-09-26 19:43 | Emergency (ER) | payer MEDICARE, OTHER ==
[~2024-09-26] VITALS: Ht 147.3 cm; Wt 78.5 kg
[2024-09-26 19:48] VITALS: PULSE 101; RESP 19; TEMP 98.4
[2024-09-26] MEDS: ONDANSETRON HCL INJ 2MG/ML 2ML 2 MG/ML VIAL IV STA (20:40)
[2024-09-26] MEDS: SODIUM CHLORIDE 0.9% 1000ML 1,000 ML IV ONE (21:04)
[2024-09-26] MEDS ORDERED: ONDANSETRON ODT4 MG PO (23:41)
[2024-09-26 23:52] VITALS: BP 157/75; PULSE 80; RESP 16; TEMP 97.7; O2SAT 94
== END 2024-09-26 23:56 | disposition home or self-care (01) ==
LOC: FSED 19:51
DX: R11.2 Nausea with vomiting, unspecified (principal); K29.70 Gastritis, unspecified, without bleeding; E11.65 Type 2 diabetes mellitus with hyperglycemia; I10 Essential (primary) hypertension; E78.5 Hyperlipidemia, unspecified; E66.9 Obesity, unspecified
CPT/HCPCS: 74177; 80053; 85025; 96374; 99284; J2405; J7030

== ENCOUNTER 2024-10-03 17:46 | Inpatient (IN) | payer MEDICARE, OTHER ==
[~2024-10-03] VITALS: Ht 147.3 cm; Wt 78.5 kg
[~2024-10-03 17:46] MED LIST changes: +ONDANSETRON ODT4 MG PO
[2024-10-03 18:28] LABS: BASOPHILS % 0.3 % (0.0-1.0); EOSINOPHILS % 0.1 % (0.0-6.0); HEMATOCRIT 43.5 % (34.2-44.1); LYMPHOCYTES # (AUTO) 1.4 (1.0-3.2); LYMPHOCYTES % 14.7 % (18.0-39.1); MEAN CORPUSCULAR HEMOGLOBIN 29.2 pg (28-32); MEAN CORPUSCULAR HGB CONC 34.5 g/dL (31-35); MEAN CORPUSCULAR VOLUME 84.6 fL (81-99); MONOCYTES # (AUTO) 0.6 (0.2-0.8); NEUTROPHILS # (AUTO) 7.2 (2.1-6.9); NEUTROPHILS % 78.6 % (38.7-80.0); PLATELET COUNT 182 x10e3/uL (140-360); RED BLOOD COUNT 5.14 x10e6/uL (3.6-5.1); WHITE BLOOD COUNT 9.16 x10e3/uL (4.8-10.8)
[2024-10-03] MEDS: SODIUM CHLORIDE 0.9% 1000ML 1,000 ML IV STA (18:37)
[2024-10-03] MEDS: ONDANSETRON HCL INJ 2MG/ML 2ML 2 MG/ML VIAL IV STA (18:39)
[2024-10-03] MEDS: Morphine 4mg INJECTION 4 MG/ML INJ IV STA (18:40)
[2024-10-03 18:54] LABS: ALANINE AMINOTRANSFERASE 16 IU/L (0-55); ALBUMIN 4.7 g/dL (3.5-5.0); ALBUMIN/GLOBULIN RATIO 1.6 (0.8-2.0); ALKALINE PHOSPHATASE 86 IU/L (40-150); ANION GAP 17.4 mmol/L (8-16); BILIRUBIN,TOTAL 0.7 mg/dL (0.2-1.2); BLOOD UREA NITROGEN 7 mg/dL (7-26); BUN/CREATININE RATIO 11 (6-25); CALCIUM 10.1 mg/dL (8.4-10.2); CARBON DIOXIDE 23 mmol/L (22-29); CHLORIDE 92 mmol/L (98-107); CREATINE KINASE 80 IU/L (29-168); CREATININE, SERUM 0.63 mg/dL (0.57-1.11); EST GLOMERULAR FILTRATION RATE 92 ML/MIN (>=60); GLUCOSE 221 mg/dL (74-118); LIPASE 9 U/L (8-78); POTASSIUM 3.4 mmol/L (3.5-5.1); SODIUM 129 mmol/L (136-145); TOTAL PROTEIN 7.7 g/dL (6.5-8.1)
[2024-10-03 19:01] LABS: TROPONIN I < 0.001 ng/mL (0-0.300)
[2024-10-03] MEDS ORDERED: IOPAMIDOL 370 MG/ML 100 ML INFUS..BTL INJ ONE (19:04)
[2024-10-03] MEDS ORDERED: Morphine 2mg Syringe 2 MG/ML SYR IV PRN (21:15)
[2024-10-03] MEDS ORDERED: ONDANSETRON HCL INJ 2MG/ML 2ML 2 MG/ML VIAL IV PRN (21:15)
[2024-10-03 22:00] VITALS: PULSE 90; RESP 18; TEMP 98.3
[2024-10-03] MEDS: SODIUM CHLORIDE 0.9% 1000ML 1,000 ML IV SCH (22:09)
[2024-10-03 22:16] VITALS: BP 146/65; PULSE 91; RESP 18; TEMP 98.6; O2SAT 94
[2024-10-04 04:00] VITALS: BP 141/65; PULSE 83; RESP 18; TEMP 97.8; O2SAT 95
[2024-10-04] MEDS: METOCLOPRAMIDE HCL 10 MG/2ML VIAL IV ONE (04:44)
[2024-10-04] MEDS: METOCLOPRAMIDE HCL 10 MG/2ML VIAL ONE (05:30)
[2024-10-04 05:51] LABS: BILIRUBIN,URINE NEGATIVE (NEGATIVE); CLARITY,URINE CLEAR (CLEAR); COLOR,URINE YELLOW (YELLOW); GLUCOSE, URINE 1+ (NEGATIVE); KETONES,URINE TRACE (NEGATIVE); LEUKOCYTE ESTERASE ,URINE NEGATIVE (NEGATIVE); NITRITE,URINE NEGATIVE (NEGATIVE); PH,URINE 6.5 (5 - 7); PROTEIN,URINE DIPSTICK 2+ (NEGATIVE); URINE UROBILINOGEN 0.2 mg/dL (0.2 - 1)
[2024-10-04 06:03] LABS: BASOPHILS % 0.6 % (0.0-1.0); EOSINOPHILS # (AUTO) 0.2 (0.0-0.4); EOSINOPHILS % 2.5 % (0.0-6.0); HEMATOCRIT 39.9 % (34.2-44.1); HEMOGLOBIN 13.6 g/dL (12.0-16.0); LYMPHOCYTES # (AUTO) 1.6 (1.0-3.2); LYMPHOCYTES % 24.8 % (18.0-39.1); MEAN CORPUSCULAR HEMOGLOBIN 29.4 pg (28-32); MEAN CORPUSCULAR HGB CONC 34.1 g/dL (31-35); MEAN CORPUSCULAR VOLUME 86.4 fL (81-99); MONOCYTES # (AUTO) 0.8 (0.2-0.8); MONOCYTES % 11.9 % (4.4-11.3); NEUTROPHILS # (AUTO) 3.9 (2.1-6.9); NEUTROPHILS % 59.9 % (38.7-80.0); PLATELET COUNT 170 x10e3/uL (140-360); RED BLOOD COUNT 4.62 x10e6/uL (3.6-5.1); RED CELL DISTRIBUTION WIDTH 13.2 % (11.7-14.4); WHITE BLOOD COUNT 6.45 x10e3/uL (4.8-10.8)
[2024-10-04 06:29] LABS: ALBUMIN 3.9 g/dL (3.5-5.0); ALBUMIN/GLOBULIN RATIO 1.6 (0.8-2.0); ANION GAP 14.3 mmol/L (8-16); BILIRUBIN,TOTAL 0.8 mg/dL (0.2-1.2); CALCIUM 9.3 mg/dL (8.4-10.2); CREATININE, SERUM 0.64 mg/dL (0.57-1.11); TOTAL PROTEIN 6.3 g/dL (6.5-8.1)
[2024-10-04 06:36] LABS: POTASSIUM 3.3 mmol/L (3.5-5.1)
[2024-10-04 06:46] LABS: BACTERIA,URINE FEW /HPF; EPITHELIAL CELLS,URINE FEW /LPF; RBC,URINE 0-5 /HPF (0-5); WBC,URINE (MAN) 0-5 /HPF (0-5)
[2024-10-04 06:53] LABS: TROPONIN I 0.003 ng/mL (0-0.300)
[2024-10-04 08:00] VITALS: BP 137/54; PULSE 81; RESP 18; TEMP 98.8; O2SAT 98
[2024-10-04 09:09] VITALS: BP 137/54; PULSE 81; RESP 18; TEMP 98.8; O2SAT 98
[2024-10-04] MEDS: METOCLOPRAMIDE HCL 10 MG/2ML VIAL IV SCH (09:46)
[2024-10-04] MEDS ORDERED: ACETAMINOPHEN 325 MG TAB PO PRN (11:15)
[2024-10-04] MEDS ORDERED: DEXTROSE 50% SYRINGE 50 ML IV PRN (11:15)
[2024-10-04] MEDS ORDERED: TRAMADOL HCL 50 MG TAB PO PRN (11:15)
[2024-10-04] MEDS: INSULIN LISPRO 100 UNIT/1 ML 3ML VIAL SQ SCH (11:30)
[2024-10-04 12:00] VITALS: BP 140/60; PULSE 77; RESP 16; TEMP 98; O2SAT 95
[2024-10-04] MEDS: POTASSIUM CHLORIDE 10MEQ EA PO ONE (12:01)
[2024-10-04 15:35] LABS: TROPONIN I 0.001 ng/mL (0-0.300)
[2024-10-04 16:00] VITALS: BP 138/62; PULSE 82; RESP 17; TEMP 98.2; O2SAT 95
[2024-10-04] MEDS ORDERED: METOCLOPRAMIDE H5 MG PO (18:07)
[2024-10-04 18:38] LABS: WBC,FECAL (FECAL LACTOFERRIN) NEGATIVE (NEGATIVE)
[2024-10-04 18:56] LABS: CDIFF AG QUIK CHEK NEGATIVE (NEGATIVE); CDIFF TOX QUIK CHEK NEGATIVE (NEGATIVE)
[2024-10-04] MEDS ORDERED: GABAPENTIN 100 MG CAP PO SCH (21:00)
== END 2024-10-04 19:00 | disposition home or self-care (01) | DRG 74 ==
LOC: ER 17:59 → ERHOLD 21:05 → MED/SURG3 23:20
PROVIDERS: ADMIT Internal Medicine; ATTEND Internal Medicine
DX: E11.43 Type 2 diabetes mellitus with diabetic autonomic (poly)neuropathy (principal); E87.1 Hypo-osmolality and hyponatremia; E11.42 Type 2 diabetes mellitus with diabetic polyneuropathy; K31.84 Gastroparesis; A08.4 Viral intestinal infection, unspecified; E78.2 Mixed hyperlipidemia; I10 Essential (primary) hypertension; R53.81 Other malaise; E66.812 Obesity, class 2; Z68.36 Body mass index [BMI] 36.0-36.9, adult; Z79.4 Long term (current) use of insulin; Z79.82 Long term (current) use of aspirin; Z79.84 Long term (current) use of oral hypoglycemic drugs; Z90.49 Acquired absence of other specified parts of digestive tract; Z98.1 Arthrodesis status
CPT/HCPCS: 36415; 74177; 80053; 81001; 82550; 82948; 83630; 83690; 83930; 83935; 83993; 84300; 84484; 85025; 87324; 87449; 93005; 99284; J2270; J2405; J2470; J2765; J7030; Q9967

== ENCOUNTER → 2024-12-05 | Day surgery (SDC) | payer OTHER ==
[2024-12-03 11:45] LABS: BASOPHILS # (AUTO) 0.1 (0.0-0.1); BASOPHILS % 0.6 % (0.0-1.0); EOSINOPHILS # (AUTO) 0.1 (0.0-0.4); EOSINOPHILS % 1.6 % (0.0-6.0); HEMATOCRIT 43.1 % (34.2-44.1); HEMOGLOBIN 14.4 g/dL (12.0-16.0); LYMPHOCYTES # (AUTO) 2.5 (1.0-3.2); LYMPHOCYTES % 32.5 % (18.0-39.1); MEAN CORPUSCULAR HEMOGLOBIN 28.9 pg (28-32); MEAN CORPUSCULAR HGB CONC 33.4 g/dL (31-35); MEAN CORPUSCULAR VOLUME 86.5 fL (81-99); MONOCYTES # (AUTO) 0.8 (0.2-0.8); MONOCYTES % 10.3 % (4.4-11.3); NEUTROPHILS # (AUTO) 4.2 (2.1-6.9); NEUTROPHILS % 54.5 % (38.7-80.0); PLATELET COUNT 205 x10e3/uL (140-360); RED BLOOD COUNT 4.98 x10e6/uL (3.6-5.1); RED CELL DISTRIBUTION WIDTH 13.2 % (11.7-14.4)
[~2024-12-05] MED LIST changes: +GLUCAGON FOR INJ 1 MG VIAL ONE; +HYDROXYZINE HCL25 MG PO; +LIDOCAINE HCL 2% LOCAL INJ 5 ML SDV VIAL INJ ONE; +METOCLOPRAMIDE H5 MG PO; +PRAZOSIN HCL2 MG PO; +PROMETHAZINE HC25 M1 PO; +PROPOFOL IV EMULSION 10 MG/ML 20 ML VIAL ONE; +RYBELSUS14 MG PO; +TRAZODONE HCL300 MG PO
[2024-12-05] MEDS: LACTATED RINGER'S 1,000 ML ONE (06:29)
[2024-12-05 08:36] VITALS: TEMP 97.6
[2024-12-05 09:00] VITALS: BP 118/62; PULSE 73; RESP 18; O2SAT 98
== END | disposition home or self-care (01) ==
LOC: OR 05:55
PROVIDERS: ATTEND Internal Medicine Gastroenterology
DX: Z12.11 Encounter for screening for malignant neoplasm of colon (principal); D12.2 Benign neoplasm of ascending colon; K58.9 Irritable bowel syndrome, unspecified; K57.30 Diverticulosis of large intestine without perforation or abscess without bleeding; K64.8 Other hemorrhoids; K31.84 Gastroparesis; R13.19 Other dysphagia; K21.9 Gastro-esophageal reflux disease without esophagitis; R11.2 Nausea with vomiting, unspecified; R09.A2 Foreign body sensation, throat; I10 Essential (primary) hypertension; E11.9 Type 2 diabetes mellitus without complications; Z71.89 Other specified counseling; E78.5 Hyperlipidemia, unspecified; J44.9 Chronic obstructive pulmonary disease, unspecified; E03.9 Hypothyroidism, unspecified; N39.0 Urinary tract infection, site not specified; M06.9 Rheumatoid arthritis, unspecified; F41.9 Anxiety disorder, unspecified; F32.A Depression, unspecified; Z01.810 Encounter for preprocedural cardiovascular examination; Z01.812 Encounter for preprocedural laboratory examination; Z79.84 Long term (current) use of oral hypoglycemic drugs; Z79.899 Other long term (current) drug therapy; Z68.32 Body mass index [BMI] 32.0-32.9, adult; Z71.3 Dietary counseling and surveillance
CPT/HCPCS: 36415 ×2; 45385; 82948; 85025; 88305; 93005; J1610; J2003; J2704; J7121; 45378